=== PATIENT | female | born 1950 | race Caucasian/White ===

== ENCOUNTER 2024-08-21 16:25 | Inpatient (IN) | payer MEDICARE ==
[~2024-08-21] VITALS: Ht 172.7 cm; Wt 81.8 kg
[2024-08-21 17:40] VITALS: BP 157/87; PULSE 75; RESP 16; TEMP 98.1; O2SAT 96
[2024-08-21 17:41] VITALS: O2SAT 96
[2024-08-21] MEDS ORDERED: HYDROcodone/acetaminophen 10/325mg tab PO PRN (17:55)
[2024-08-21] MEDS ORDERED: potassium Cl 40MEQ/1/2NS 520ml 520 ML IV PRN (17:55)
[2024-08-21] MEDS ORDERED: acetaminophen 325mg tablet PO PRN (17:55)
[2024-08-21] MEDS ORDERED: magnesium sulf-water 4G/100mL 100 ML IV PRN (17:55)
[2024-08-21] MEDS ORDERED: potassium Cl 20 mEq SR tablet PO PRN ×2 (17:55)
[2024-08-21] MEDS ORDERED: magnesium hydroxide 30ml (MOM) UD suspension PO PRN (17:55)
[2024-08-21] MEDS ORDERED: hydrALAZINE 20mg/ml inj. IV PRN (17:55)
[2024-08-21] MEDS ORDERED: aspirin 81mg, enteric-coated 1 TAB TABLET.DR PO ONE (17:55)
[2024-08-21] MEDS ORDERED: HYDROcodone/acetaminophen 5mg/325mg tablet PO PRN (17:55)
[2024-08-21] MEDS ORDERED: mag hydrox/Alum hydrox/simeth 30ml oral suspension PO PRN (17:55)
[2024-08-21] MEDS ORDERED: ondansetron/PF 4mg/2ml inj IV PRN (17:55)
[2024-08-21] MEDS ORDERED: magnesium sulf-water 2g/50mL 50 ML IV PRN (17:55)
--- NOTE | 2024-08-21 17:59 | HISTORY AND PHYSICAL ---
History & Physical Providers to ~ History of Present Illness Reason for Admit\Complaint: Severe MR, acute hypoxic respiratory failure History of Present Illness Will Kim is a 73-year-old female with past medical history of chronic diastolic heart failure, NIDDM, hyperlipidemia, COPD, recent GIB who was transferred from [facility] for management of severe mitral regurgitation and needs for cardiac catheterization prior to valve replacement. Patient denies prior MO/CAD, CVA, cardiac arrhythmia, DVT/PE. Patient reports severe shortness of breath with ambulation or exertion but denies chest pain, palpitations, abdominal pain, n/v/d, fever, chills. Medical records from [place] reviewed by me, TTE shows LVEF 60-65% with left ventricular wall thickness, mildly dilated atrium, mild stenosis of aortic valve with mild regurgitation, severe mitral valve regurgitation, mild tricuspid regurgitation, normal right ventricle, small to moderate pericardial effusion without tamponade. At [facility], there was concerns for GIB and normocytic anemia. EGD was completed with findings notable for gastritis. Sinter Machine Operator Dr. Lawrence consulted. Patient is to be admitted for further workups and interventions. Allergies: Coded Allergies: [id number] Reductase Inhibitor (Verified Allergy, Unknown, 08/21/24) Past Medical History Past Medical History MR, severe Chronic diastolic heart failure Hyperlipidemia Hypertension NIDDM COPD Fatty liver disease Past Surgical History Surgical History Comment Cholecystectomy Appendectomy Past Social History Social History Comment Alcohol: hx chronic alcoholism, quit 37 years ago Tobacco: Former smoker, 30 pack year smoking history, quit 20 years ago Illicit drug use: Denies Living situation: Lives alone at home ROS ROS Other than positives in HPI, all 14 review of systems are negative Exam General: Generalized weakness, A&Ox 3, NAD HEENT: Normocephalic, PERRLA Neck: Supple, trachea midline, no JVD Chest: Clear to auscultation bilaterally Cardiovascular: RRR, Grade V holosystolic murmur over apex of the heart Abdomen: Soft and nontender Extremities: No cyanosis/clubbing/or edema Central Nervous System: CN II-XII intact, no focal deficits Musculoskeletal: No paraspinal muscle tenderness, no muscle spasm Skin: Warm and intact Counseling Services Smoking & Tobacco Cessation: > 10 Minutes Additional Plan # Mitral valve regurgitation, severe # Acute on chronic diastolic heart failure, LVEF 60-65% -TTE form [facility] shows: LVEF 60-65% with left ventricular wall thickness, m ildly dilated atrium, mild stenosis of aortic valve with mild regurgitation, severe mitral valve regurgitation, mild tricuspid regurgitation, normal right ventricle, small to moderate pericardial effusion without tamponade -metoprolol, supplemental oxygen; follow EKG, CBC, CMP -consulted language assistant Al Dang who will do cath tomorrow. # GIB # Normocytic anemia # Gastritis -PPI # HTN # NIDDM # COPD -aspirin, reports adverse reaction to statin on home Repatha, prn bronchodilators -LDL 48, A1c 5.6% Diet: NPO after midnight DVT/VTE Prophylaxis: SCDs, hold chemical anticoagulant in view of recent GIB Code Status: Full Code I spent a total of 30 minutes discussing Advanced Care Planning measures with the patient. Advance care planning: Discussed with patient the importance of advance care planning in case of emergent situation. We discussed various resuscitative measures/ ACP with the patient at the time of admission. Patient voiced understanding and patient has decided on a DNR/DNI. Date of Service: Aug 21, 2024 Billing Provider: SURENDRA TRIVEDI Common Visit Codes: [id number] INP/OBS CARE (HIGH) Secondary Visit Codes: [id number] CARE PLAN 30 MINUTES SURENDRA TRIVEDI Aug 21, 2024 17:59
[2024-08-21] MEDS ORDERED: ipratropium/albuterol 3ml nebule NEB PRN (18:20)
[2024-08-21 18:23] LABS: BASOPHILS % (AUTO) 0.8 % (0-1); EOSINOPHILS # (AUTO) 0.1 X10'3 (0-0.9); EOSINOPHILS % (AUTO) 2.4 % (0-6); HEMOGLOBIN 9.7 g/dl (12.0-16.0); LYMPHOCYTES # (AUTO) 1.2 X10'3 (1.1-4.8); LYMPHOCYTES % (AUTO) 20.6 % (21-51); MEAN CORPUSCULAR HEMOGLOBIN 30.5 PG (27.0-31.0); MEAN CORPUSCULAR HGB CONC 34.6 g/dL (33.0-36.5); MEAN CORPUSCULAR VOLUME 88.2 FL (78-98); MONOCYTES # (AUTO) 0.6 X10'3 (0-0.9); MONOCYTES % (AUTO) 9.2 % (2-12); PLATELET COUNT 201 X10'3 (140-440); RED BLOOD COUNT 3.17 X10'6 (4.20-5.60); RED CELL DISTRIBUTION WIDTH 14.9 % (11.5-14.5)
[2024-08-21] MEDS ORDERED: ALLO100T PO (18:23)
[2024-08-21 18:38] LABS: ALANINE AMINOTRANSFERASE 28 U/L (12-78); ALBUMIN 3.1 G/DL (3.4-5.0); ALBUMIN/GLOBULIN RATIO 1.1 (1.1-1.5); ALKALINE PHOSPHATASE 54 IU/L (46-116); ANION GAP 8 (8-16); ASPARTATE AMINO TRANSFERASE 17 U/L (10-37); BILIRUBIN,TOTAL 0.5 MG/DL (0.1-1.0); BLOOD UREA NITROGEN 20 MG/DL (7-18); CALCIUM 8.5 MG/DL (8.5-10.1); CHLORIDE 105 MMOL/L (99-107); GLUCOSE 110 MG/DL (70-104); POTASSIUM 4.1 MMOL/L (3.5-5.1); SODIUM 140 MMOL/L (135-145); TOTAL CARBON DIOXIDE 27.2 MMOL/L (24-32); eGFR 70 ML/MIN
[2024-08-21 18:41] LABS: HEMOGLOBIN A1C 5.6 % (4.5-6.2)
[2024-08-21 18:44] LABS: CHOL/HDL RATIO 2.3 (0.00-4.99); CHOLESTEROL 124 MG/DL (0-200); HDL CHOLESTEROL 55 MG/DL (35-60); LDL CHOLESTEROL 48 MG/DL (50-100); PRO BRAIN NATRIURETIC PEPTIDE 901 PG/ML (0-450); TRIGLYCERIDES 169 MG/DL (20-135)
[2024-08-21 18:58] LABS: PROTHROMBIN TIME 10.4 SECONDS (9.0-12.0)
[2024-08-21] MEDS: docusate sod 100mg capsule PO SCH (19:18)
[2024-08-21] MEDS: metoprolol succinate 25mg (24-HOUR) SR. Tablet PO ONE (19:21)
[2024-08-21] MEDS: pantoprazole 40 MG vial IV SCH (19:27)
[2024-08-21] MEDS: K and/or MAG REPLACEMENT MC SCH (19:43)
[2024-08-21] MEDS ORDERED: heparin, porcine 5000 units/ml vial SQ SCH (20:00)
[2024-08-21 20:02] VITALS: PULSE 81; RESP 18; O2SAT 98
[2024-08-21 22:00] VITALS: BP 146/87; PULSE 80; RESP 19; TEMP 97.8; O2SAT 97
[2024-08-22] VITALS (14 sets, daily range): BP systolic 107–196; BP diastolic 79–98; PULSE 72–96; RESP 12–22; TEMP 97.4–98.9; O2SAT 90–94
[2024-08-22 07:04] LABS: BASOPHILS % (AUTO) 0.7 % (0-1); EOSINOPHILS # (AUTO) 0.2 X10'3 (0-0.9); EOSINOPHILS % (AUTO) 3.7 % (0-6); HEMATOCRIT 29.8 % (35.0-45.0); HEMOGLOBIN 10.1 g/dl (12.0-16.0); LYMPHOCYTES # (AUTO) 1.4 X10'3 (1.1-4.8); LYMPHOCYTES % (AUTO) 20.8 % (21-51); MEAN CORPUSCULAR HEMOGLOBIN 30.2 PG (27.0-31.0); MEAN CORPUSCULAR HGB CONC 34.1 g/dL (33.0-36.5); MEAN CORPUSCULAR VOLUME 88.6 FL (78-98); MEAN PLATELET VOLUME 7.5 FL (7.4-10.4); MONOCYTES # (AUTO) 0.6 X10'3 (0-0.9); MONOCYTES % (AUTO) 8.5 % (2-12); NEUTROPHILS # (AUTO) 4.3 X10'3 (1.8-7.7); NEUTROPHILS % (AUTO) 66.3 % (42-75); PLATELET COUNT 183 X10'3 (140-440); RED BLOOD COUNT 3.36 X10'6 (4.20-5.60); RED CELL DISTRIBUTION WIDTH 15.1 % (11.5-14.5); WHITE BLOOD COUNT 6.5 X10'3 (4.5-11.0)
[2024-08-22 07:15] LABS: ALANINE AMINOTRANSFERASE 28 U/L (12-78); ALKALINE PHOSPHATASE 51 IU/L (46-116); ANION GAP 8 (8-16); ASPARTATE AMINO TRANSFERASE 21 U/L (10-37); BILIRUBIN,TOTAL 0.6 MG/DL (0.1-1.0); BLOOD UREA NITROGEN 18 MG/DL (7-18); BUN/CREATININE RATIO 22.2 (10.0-20.0); CALCIUM 8.9 MG/DL (8.5-10.1); CHLORIDE 107 MMOL/L (99-107); CREATININE 0.81 MG/DL (0.40-0.90); GLUCOSE 112 MG/DL (70-104); MAGNESIUM 1.8 MG/DL (1.5-2.4); SODIUM 143 MMOL/L (135-145); TOTAL CARBON DIOXIDE 28.1 MMOL/L (24-32); eGFR 69 ML/MIN
[2024-08-22] MEDS ORDERED: FLUT16SP (07:32)
[2024-08-22] MEDS ORDERED: NITR0.4T48 SL (07:32)
[2024-08-22] MEDS ORDERED: METO-411 PO (07:32)
[2024-08-22] MEDS ORDERED: EVOL140P3 SQ (07:32)
[2024-08-22] MEDS ORDERED: LOSA100T58 PO (07:32)
[2024-08-22] MEDS ORDERED: AMLO5TAB16 PO (07:32)
[2024-08-22] MEDS ORDERED: aspirin 81mg, enteric-coated 1 TAB TABLET.DR PO SCH (08:00)
[2024-08-22] MEDS: metoprolol succinate 25mg (24-HOUR) SR. Tablet PO SCH (08:05)
[2024-08-22] MEDS: amLODIPine 5mg tablet PO ONE (08:24)
[2024-08-22 09:55] LABS: BILIRUBIN,URINE NEGATIVE (Neg); CLARITY,URINE CLEAR (Clear); COLOR,URINE YELLOW (Yellow); GLUCOSE, URINE NEGATIVE (Neg); KETONES,URINE NEGATIVE (Neg); LEUKOCYTE ESTERASE ,URINE NEGATIVE (Neg); NITRITES, URINE NEGATIVE (Neg); OCCULT BLOOD,URINE NEGATIVE (Neg); PROTEIN,URINE NEGATIVE (Neg)
[2024-08-22 09:58] LABS: UA COLLECTION TYPE CLN CATCH MIDSTREAM
[2024-08-22] MEDS: sodium bicarbonate 1meq/ml syr 150 ML in dextrose 5%-water 1,000 ML IV ONE (13:32)
[2024-08-22] MEDS ORDERED: midazolam 1 mg/ML 2ml injection ONE ×2 (13:34→14:29)
[2024-08-22] MEDS ORDERED: fentaNYL/PF 50MCG/1 ML 2ML syringe ONE (13:34)
[2024-08-22] MEDS ORDERED: iohexol 350MG/ML 100ml bottle IV ONE (13:35)
[2024-08-22] MEDS ORDERED: heparin 1,000unit/ml 10ml vial 10 ML ONE (13:35)
[2024-08-22] MEDS ORDERED: iohexol 350 MG/ML 50ML vial IV ONE ×2 (13:35→13:39)
[2024-08-22] MEDS ORDERED: LIDOcaine 1% 30ml preserv. free vial ONE (13:44)
[2024-08-22] MEDS ORDERED: protamine sulfate 10mg/ml inj. ONE (14:56)
[2024-08-22] MEDS ORDERED: proCHLORperazine 10 MG/2 ml inj IV PRN (16:00)
[2024-08-22] MEDS ORDERED: HYDROcodone/acetaminophen 10/325mg tab PO PRN (16:00)
[2024-08-22] MEDS ORDERED: ondansetron/PF 4mg/2ml inj IV PRN (16:00)
[2024-08-22] MEDS ORDERED: HYDROcodone/acetaminophen 5mg/325mg tablet PO PRN (16:00)
--- NOTE | 2024-08-22 17:06 | PROGRESS NOTE ---
Daily Progress Note Providers to CC ~ Antibiotic Timeout Antibiotic Ordered?: No Subjective No acute events overnight. Patient examined at bedside. No new complaints, not in acute distress. Patient denies chest pain, sob, palpitations, abdominal pain, n/v/d. Vss, on room air, labs unremarkable. Objective Vital Signs Date Time Temp Pulse Resp B/P (MAP) Pulse Ox O2 Delivery O2 Flow Rate FiO2 08/22/24 11:18 86 20 93 Room Air* 0 21 08/22/24 11:00 97.7 157/83 (107) Result Diagram: 08/22/24 0611 08/22/24 0611 Physical Exam General: Generalized weakness, A&Ox 3, NAD HEENT: Normocephalic, PERRLA Neck: Supple, trachea midline, no JVD Chest: Clear to auscultation bilaterally Cardiovascular: RRR, Grade V holosystolic murmur over apex of the heart GI: Soft and nontender Extremities: No cyanosis/clubbing/or edema PURCHASING COORDINATOR: CN II-XII intact, no focal deficits Musculoskeletal: No paraspinal muscle tenderness, no muscle spasm Skin: Warm and intact Coagulation Studies Laboratory Tests Test 08/21/24 18:35 Prothrombin Time 10.4 SECONDS (9.0-12.0) INR International Normalized Ratio 1.0 INR Coagulation Comments Problem\Assessment\Plan # Mitral valve regurgitation, severe # Acute on chronic diastolic heart failure, LVEF 60-65% -TTE form [facility] shows: LVEF 60-65% with left ventricular wall thickness, mildly dilated atrium, mild stenosis of aortic valve with mild regurgitation, s evere mitral valve regurgitation, mild tricuspid regurgitation, normal right ventricle, small to moderate pericardial effusion without tamponade -metoprolol, supplemental oxygen; follow EKG, CBC, CMP -consulted stock unloader Al Dang who will do cath tomorrow -08/22: cath today # GIB # Normocytic anemia # Gastritis -PPI, h/h stable # HTN # NIDDM # COPD -aspirin, reports adverse reaction to statin on home Repatha, prn bronchodilators -LDL 48, A1c 5.6% Diet: NPO after midnight DVT/VTE Prophylaxis: SCDs, hold chemical anticoagulant in view of recent GIB Code Status: Full Code I spent a total of 30 minutes discussing Advanced Care Planning measures with the patient. Advance care planning: Discussed with patient the importance of advance care planning in case of emergent situation. We discussed various resuscitative measures/ ACP with the patient at the time of admission. Patient voiced understanding and patient has decided on a DNR/DNI. Date of Service: Aug 22, 2024 Billing Provider: SURENDRA TRIVEDI Common Visit Codes: [id number] INP/OBS CARE(HIGH) SURENDRA TRIVEDI Aug 22, 2024 17:06
--- NOTE | 2024-08-22 19:12 | CONSULTATION ---
DATE OF CONSULTATION: 08/22/2024 DICTATING PHYSICIAN: ZEENAT DAILEY DO REFERRING PHYSICIAN: Dr. Kwong. CHIEF COMPLAINT: Dyspnea. CLINICAL HISTORY: This 73-year-old woman was transferred to [facility] yesterday from [facility]. She has been admitted three times there in calendar year 2024 for problems with severe dyspnea, labile blood pressure, and congestive heart failure. Echocardiography has demonstrated very severe mitral regurgitation. There has been no history of ischemic heart disease. Her most recent admission was just prior to transfer wherein she presented with her usual symptoms, but on this occasion, she also had a history of black tarry stools and she was moderately anemic with a hemoglobin initially at 8 but falling to 7.1. Aspirin had been recently started but was discontinued during the hospitalization. She received 2 units of packed red cells and her status was thereafter reasonably stable. She has been transferred to [place] in expectation of a workup prior to mitral valve repair or replacement. Today cardiac catheterization was performed. That study demonstrated no obstructive coronary disease, severe, 4+ mitral regurgitation and hyperdynamic left ventricular function with the ejection fraction estimated to be about 75%. Her past medical history is remarkable for an unspecified problem with statin medicines. Her other medical problems have included hyperlipidemia, diabetes mellitus type 2, chronic obstructive lung disease, a prior history of alcoholism and a question of chronic diastolic heart failure. Previous surgeries have included an appendectomy and cholecystectomy. Medicines at the time of admission in [place] included amlodipine, losartan, metoprolol succinate, Repatha, allopurinol, baby aspirin (now discontinued), fish oil, coenzyme Q10, calcium carbonate, fluticasone nasal spray, magnesium supplement of 400 mg per day, nitroglycerin 0.4 mg SL p.r.n. chest pain. SOCIAL HISTORY: The patient is currently not a smoker but discontinued the habit in 1999. She denies any alcoholic beverage consumption since 1986. REVIEW OF SYSTEMS: Otherwise unremarkable. PHYSICAL EXAMINATION: VITAL SIGNS: Blood pressure in the cardiac catheterization laboratory demonstrated a heart rate of 82, blood pressure of 138/74. GENERAL: She was in no distress. The patient is markedly overweight. NECK: She had no jugular venous distention. No carotid bruits. CHEST: On examination of the chest, she had crackles at the right base and breath sounds were somewhat distant, clear on the left. CARDIOVASCULAR: Apical impulse not clearly displaced. Both heart sounds were soft and single. There is a grade 3/6 systolic murmur best heard at the apex. No gallops. ABDOMEN: Overweight, soft, nontender. EXTREMITIES: No edema. Foot pulses are difficult to palpate. EKG demonstrated sinus rhythm and nonspecific ST-T changes. Slot Machine Department Floorperson laboratory data since admission to this hospital, a.m. hemogram demonstrated a hemoglobin of 10.1, hematocrit of 29.8, WBC count 6500, platelet count 183,000. Sodium 143, potassium 4, CO2 content 28.1. Blood sugars varying between 107 and 152 today. Albumin 3.0. All liver function tests within the normal range. Creatinine 0.81, BUN 18. Other findings on echocardiography in [place] included an estimated aortic valve area of 1.8 cm2. The patient was also thought to have some degree of relative mitral stenosis, but no comment about the aortic or mitral valves actually looking like there has been damage from previous rheumatic carditis. ASSESSMENT/PLAN: This patient's principal problem is severe mitral regurgitation. It is presumed that she has a problem with ruptured chordae, but it is not defined yet as to where her valve dysfunction is located, i.e., where broken cords exist. Most probably, the posterior leaflet is primarily involved. Considering the fact that she has been hospitalized three times since 05/07/2024, the patient is a very strong candidate for referral to cardiac surgery. If it is requested that she have a transesophageal echocardiogram before surgery, it will be provided. ZEENAT DAILEY DO TID: [id number] RECEIPT: [id number] COREY/KARAN IRVING
--- NOTE | 2024-08-22 19:52 | CARDIOLOGY REPORT ---
DATE OF SERVICE: 08/22/2024 DICTATING PHYSICIAN: ZEENAT DAILEY DO CARDIAC CATHETERIZATION REPORT REFERRING PHYSICIAN: Asif Eugene MD. CLINICAL HISTORY: This 73-year-old woman has been admitted on 3 separate occasions in calendar 2024 for congestive heart failure. Most recently, she was hospitalized at [place] earlier this month with dyspnea, hypotension and anemia/gastrointestinal bleeding. Her bleeding issue is now resolved and she is also hemodynamically stable. Echocardiography has demonstrated severe mitral regurgitation. PROCEDURES PERFORMED: * Right heart catheterization. * Left heart catheterization. * Left ventriculography. * Selective coronary arteriography. * Percutaneous arteriotomy closure (Perclose). * A 45-minute conscious sedation supervision. DESCRIPTION OF PROCEDURE: Right heart catheterization. The right inguinal area was infiltrated with 1% lidocaine and 8-Rwandan sheath was placed in the femoral vein. Using a 7.5-Rwandan Columbus-Lauro catheter, right heart catheterization was performed. Cardiac output was determined using a thermodilution technique. Left heart catheterization was performed using a 6-Rwandan pigtail catheter. Left ventriculography was performed using the same pigtail catheter. Coronary arteriography was performed using 6-Rwandan #4 left and right Avelino catheters. The arterial puncture site was successfully perclosed. The venous access site hemostasis was obtained with direct pressure. RESULTS: HEMODYNAMIC DATA: The mean right atrial pressure was 13 mmHg. Right ventricular pressure was 49/12 mmHg. Mean pulmonary capillary wedge pressure was 29 mmHg. Left ventricular end diastolic pressure was 31 mmHg. The cardiac output by thermodilution technique was 4.75 L/min. There was only a 10 mm gradient across the aortic valve. LEFT VENTRICULOGRAM: The left ventriculogram was technically satisfactory. Ejection fraction was estimated to be about 75%. There was 4+ mitral regurgitation. CORONARY ARTERIOGRAPHY: The coronary arteriograms are technically satisfactory. The patient had a right dominant system. LEFT MAIN CORONARY ARTERY: The left main was a large, very short vessel immediately trifurcating into left anterior descending, intermediate, and circumflex coronary arteries. LEFT ANTERIOR DESCENDING CORONARY ARTERY: The LAD was a medium to large main stem vessel. There was one medium-sized diagonal branch taking its origin from the mid LAD. There were no high-grade stenoses in this vessel, but distally, there was about a 40-50% area of narrowing near the apex. INTERMEDIATE ARTERY: The intermediate was a small to medium-sized unobstructed vessel. CIRCUMFLEX CORONARY ARTERY: The main stem circumflex was a large vessel. There was a small caliber first obtuse marginal and 2 medium to large posterolateral branches. Just before the takeoff of the small caliber first obtuse marginal, there was about a 50% narrowing and just beyond the takeoff, the narrowing was estimated to be about 50-60%. RIGHT CORONARY ARTERY: The right coronary artery was a large main stem vessel. There was a medium-sized posterior descending branch and a small to medium-sized posterolateral branch. There were no obstructive lesions in the right coronary artery. There was about a 50-60% narrowing in the distal right coronary between the posterior descending and first posterolateral branch. CONCLUSIONS: * Severe mitral regurgitation estimated to be 4+ on the ventriculogram. By this, it is meant that after 3 successive beats, there was greater contrast enhancement of the left atrium than the left ventricle. * Coronary artery disease manifested as follows: * 40-50% mid LAD bracketing a principal diagonal branch. * 50% proximal and 50-60% distal (just after a small proximal obtuse marginal branch). * 50-60% stenosis between the RCA PDA and first posterolateral branch. * Left ventricular function is hyperdynamic. The estimated LVEF was 75%. ZEENAT DAILEY DO TID: [id number] RECEIPT: [id number] COREY/MARCIAL/MURALI cc: Asif Eugene MD [facility]
[2024-08-22] MEDS: acetaminophen 325mg tablet PO PRN (21:13)
[2024-08-23] VITALS (11 sets, daily range): BP systolic 127–150; BP diastolic 68–77; PULSE 69–93; RESP 15–22; TEMP 97.3–99.6; O2SAT 79–95
[2024-08-23 06:10] LABS: BASOPHILS % (AUTO) 0.5 % (0-1); EOSINOPHILS # (AUTO) 0.2 X10'3 (0-0.9); EOSINOPHILS % (AUTO) 2.2 % (0-6); HEMATOCRIT 28.4 % (35.0-45.0); HEMOGLOBIN 9.7 g/dl (12.0-16.0); LYMPHOCYTES # (AUTO) 0.9 X10'3 (1.1-4.8); LYMPHOCYTES % (AUTO) 12.5 % (21-51); MEAN CORPUSCULAR HEMOGLOBIN 29.9 PG (27.0-31.0); MEAN CORPUSCULAR HGB CONC 34.2 g/dL (33.0-36.5); MEAN CORPUSCULAR VOLUME 87.4 FL (78-98); MEAN PLATELET VOLUME 7.3 FL (7.4-10.4); MONOCYTES # (AUTO) 0.6 X10'3 (0-0.9); MONOCYTES % (AUTO) 8.3 % (2-12); NEUTROPHILS # (AUTO) 5.4 X10'3 (1.8-7.7); NEUTROPHILS % (AUTO) 76.5 % (42-75); PLATELET COUNT 183 X10'3 (140-440); RED BLOOD COUNT 3.25 X10'6 (4.20-5.60); RED CELL DISTRIBUTION WIDTH 14.9 % (11.5-14.5); WHITE BLOOD COUNT 7.1 X10'3 (4.5-11.0)
[2024-08-23 06:14] LABS: ALANINE AMINOTRANSFERASE 29 U/L (12-78); ALKALINE PHOSPHATASE 54 IU/L (46-116); ANION GAP 7 (8-16); ASPARTATE AMINO TRANSFERASE 22 U/L (10-37); BLOOD UREA NITROGEN 14 MG/DL (7-18); BUN/CREATININE RATIO 19.4 (10.0-20.0); CALCIUM 8.6 MG/DL (8.5-10.1); CHLORIDE 105 MMOL/L (99-107); CREATININE 0.72 MG/DL (0.40-0.90); GLUCOSE 105 MG/DL (70-104); MAGNESIUM 1.7 MG/DL (1.5-2.4); POTASSIUM 3.8 MMOL/L (3.5-5.1); SODIUM 142 MMOL/L (135-145); TOTAL CARBON DIOXIDE 29.6 MMOL/L (24-32); eCRCL 61 ML/MIN; eGFR 79 ML/MIN
[2024-08-23 06:44] LABS: BILIRUBIN,TOTAL 0.7 MG/DL (0.1-1.0); TOTAL PROTEIN 5.9 G/DL (6.4-8.2)
[2024-08-23] MEDS: amLODIPine 5mg tablet PO SCH (08:06)
[2024-08-23] MEDS: metoprolol succinate 25mg (24-HOUR) SR. Tablet PO SCH (08:07)
--- NOTE | 2024-08-23 09:59 | ELECTROCARDIOGRAPH REPORT ---
[facility] Test Date: 2024-08-23 Test Time: 09:49:56 Pat Name: ROSANGELA ATKINS Department: [facility] 3S Room: [facility] 2013 Gender: F Director Of Software Development: KIMFLORIN : 1950 Requested By: SURENDRA TRIVEDI Order Number: [id number] Reading MD: Dr. SCOTT Coffey Measurements Intervals [place] Rate: 82 P: 77 MD: 140 QRS: 41 QRSD: 100 T: 163 QT: 369 QTc: 431 Interpretive Statements Sinus rhythm Repol abnrm suggests ischemia, anterolateral Electronically Signed On 08-26-2024 18:32:[address] SCOTT Coffey Please click the below link to view image of tracing.
--- NOTE | 2024-08-23 10:19 | PROGRESS NOTE ---
Daily Progress Note Providers to CC ~ Antibiotic Timeout Antibiotic Ordered?: No Subjective No acute events overnight. Patient examined at bedside. No new complaints, not in acute distress. Patient denies chest pain, sob, palpitations, abdominal pain, n/v/d. Vss, on room air, labs unremarkable. Severe MV regurgitation, patient underwent cardiac cath yesterday. Pending MV replacement. Objective Vital Signs Date Time Temp Pulse Resp B/P (MAP) Pulse Ox O2 Delivery O2 Flow Rate FiO2 08/23/24 08:06 92 08/23/24 08:00 18 95 Room Air 08/23/24 07:09 97.8 142/68 (92) 3.0 08/22/24 18:57 21 Result Diagram: 08/23/24 0517 08/23/24 0517 Physical Exam General: Generalized weakness, A&Ox 3, NAD HEENT: Normocephalic, PERRLA Neck: Supple, trachea midline, no JVD Chest: Clear to auscultation bilaterally Cardiovascular: RRR, Grade V holosystolic murmur over apex of the heart GI: Soft and nontender Extremities: No cyanosis/clubbing/or edema COUNTER CASER: CN II-XII intact, no focal deficits Musculoskeletal: No paraspinal muscle tenderness, no muscle spasm Skin: Warm and intact Coagulation Studies Laboratory Tests Test 08/21/24 18:35 Prothrombin Time 10.4 SECONDS (9.0-12.0) INR International Normalized Ratio 1.0 INR Coagulation Comments Problem\Assessment\Plan # Mitral valve regurgitation, severe # Acute on chronic diastolic heart failure, LVEF 60-65% -TTE form [facility] shows: LVEF 60-65% with left ventricular wall thickness, mildly dilated atrium, mild stenosis of aortic valve with mild regurgitation, s evere mitral valve regurgitation, mild tricuspid regurgitation, normal right ventricle, small to moderate pericardial effusion without tamponade -metoprolol, supplemental oxygen; follow EKG, CBC, CMP -consulted vtc technician Al Dang who will do cath tomorrow -08/22: cath today # GIB # Normocytic anemia # Gastritis -PPI, h/h stable # HTN # NIDDM # COPD -aspirin, reports adverse reaction to statin on home Repatha, prn bronchodilators -LDL 48, A1c 5.6% Diet: NPO after midnight DVT/VTE Prophylaxis: SCDs, hold chemical anticoagulant in view of recent GIB Code Status: Full Code I spent a total of 30 minutes discussing Advanced Care Planning measures with the patient. Advance care planning: Discussed with patient the importance of advance care planning in case of emergent situation. We discussed various resuscitative measures/ ACP with the patient at the time of admission. Patient voiced understanding and patient has decided on a DNR/DNI. Date of Service: Aug 23, 2024 Billing Provider: SURENDRA TRIVEDI Common Visit Codes: [id number] INP/OBS CARE(HIGH) SURENDRA TRIVEDI Aug 23, 2024 10:19
[2024-08-23] MEDS ORDERED: potassium Cl 40MEQ/1/2NS 520ml 520 ML IV PRN (11:50)
[2024-08-23] MEDS ORDERED: ceFAZolin 2gm in dextrose, iso 50 ML IV ONE (11:50)
[2024-08-23] MEDS ORDERED: magnesium sulf-water 2g/50mL 50 ML IV PRN (11:50)
[2024-08-23] MEDS ORDERED: potassium CL 10mEq/100ml bag 100 ML IV PRN (11:50)
[2024-08-23] MEDS ORDERED: magnesium sulf-water 4G/100mL 100 ML IV PRN (11:50)
[2024-08-23] MEDS ORDERED: potassium Cl 40MEQ/270ML bag 250 ML IV PRN (11:50)
[2024-08-23] MEDS ORDERED: potassium Cl 20 mEq SR tablet PO PRN (11:50)
[2024-08-23] MEDS ORDERED: potassium Cl 20mEq/100mL bag 100 ML IV PRN (11:50)
[2024-08-23] MEDS ORDERED: vancomycin/NS 1 GM ADD-VANTAGE 250 ML IV ONE (11:50)
--- NOTE | 2024-08-23 12:02 | CONSULTATION REPORT ---
History of Present Illness Providers to CC ~ Reason for Admit\Admit Dx: Severe MR, acute hypoxic respiratory failure Refering MD: Dr Al Salgado History of Present Illness Was marked is a very nice 73-year-old woman who has a known history of mitral insufficiency. She has had three admissions to the hospital for congestive heart failure in the past four months. Most recently she she was seen at the emergency department in [facility]. At that time she was found to have congestive heart failure with increasing shortness of breath. She also had a recent history of melanotic stools. She was found to have a hemoglobin of 7.1 and was transfused with 2 units of blood. She underwent EGD which by report showed nothing specific. He was transferred here for left heart catheterization. This was done yesterday by Dr. Harris salgado it showed moderate areas of stenosis which were not hemodynamically significant. It did however confirmed normal left ventricular function with severe mitral insufficiency. Interestingly it also shows fairly significant mitral annular calcification. We have been consulted for possible mitral valve repair or replacement. The patient has had two shortness of breath as well as exertional dyspnea. She has had occasional orthopnea but no PND. She denies anginal or pleuritic chest pain. She notes no peripheral edema. Allergies: Coded Allergies: Ydtjxtu-XAZ-CnU Reductase Inhibitor (Verified Allergy, Unknown, 08/21/24) Home Medications Home Medications Active Reported Fluticasone Propionate 50 Mcg/Actuation [place].susp Losartan Potassium 100 Mg Tablet 1 Tab PO DAILY Nitroglycerin 0.4 Mg Tab.subl Repatha Sureclick (Evolocumab) 140 Mg/Ml Pen.injctr SQ Amlodipine Besylate 5 Mg Tablet 1 Tab PO DAILY Metoprolol Succinate 100 Mg Tab.sr.24h 1 Tab PO DAILY Zyloprim* (Allopurinol) 100 Mg Tablet 1 Tab PO DAILY Allopurinol* (Allopurinol) 100 Mg Tablet 1 Tab PO DAILY 30 Days Physical Exam Last Vital Signs Recorded: RN Vital Signs have been reviewed: Yes, Temperature: 97.8, Source: Oral, Heart Rate: 75, Respiratory Rate: 16, BP: 142/68, Pulse Oximetry: 94, Weight: 82.800 General Appearance: alert, no apparent distress EENT: moist mucous membranes Neck: normal inspection, non-tender Respiratory: lungs clear, normal breath sounds Chest: no accessory muscle use Cardiovascular: regular rate, rhythm, systolic murmur (Grade 3/6 heard along the right sternal border) Peripheral Pulses: 2+ carotid (R), 2+ carotid (L), 2+ radial (R), 2+ radial (L), 2+ dorsalis pedis (R), 2+ dorsalis pedis (L) Gastrointestinal: normal palpation, non-tender, bowels sounds present Rectal: deferred Extremities: non-tender, no edema Neurologic: oriented x4 Psychiatric: normal mood/affect Skin: warm/dry Review of Systems ROS ROS Comments: Generally she denies anorexia or malaise, jaundice, pruritus, fever, chills or weight loss. GI she was noted has had a recent history of melena stools. EGD showed no obvious etiology. No further episodes. Hemoglobin stable. She denies nausea or vomiting, diarrhea, constipation. she denies dysuria, pyuria, hematuria, polyuria, urgency, hesitancy or frequency. Neuromuscular she denies frequent or severe headaches. She has had no change in her visual bradley. She denies difficulty with speech, swallowing, ambulation or coordination. Cardiopulmonary is as noted in HPI. Results Diagram Lab Result Diagram: 08/23/24 0517 08/23/24 0517 Assessment/Plan Additional Plan Mrs. Kim is a very nice 73-year-old woman who has severe mitral insufficiency. She has some non hemodynamically significant coronary stenoses in the 50% range which will not be addressed. Given the degree of mitral annular calcification on catheterization it is unlikely that repair we will be p ossible without extensive decalcification. Given her age it might be the better part of Valor to proceed with straight forward mitral valve replacement with preservation of chordee. The indications alternatives to surgery as well as the risks, benefits and possible complications associated with mitral valve repair or replacement in the setting have been discussed at some length with Mrs. Kmi. She states that she understands and accepts these and requested that we proceed. All of her questions have been answered to her stated satisfaction. After discussion she has agreed to full code status for 30 days postoperatively. At this time we plan surgery for Sunday. AYALA BLEDSOE III, MD Aug 23, 2024 12:02
[2024-08-23 12:43] LABS: APTT 23 SECONDS (22-32); PROTHROMBIN TIME 10.7 SECONDS (9.0-12.0)
--- NOTE | 2024-08-23 14:57 | RADIOLOGY REPORT ---
CLINICAL INFORMATION: 73 years old, Female; PRE CARDIAC SURGERY. TECHNIQUE: Frontal and lateral chest radiographs were obtained. COMPARISON: None FINDINGS: Lungs: Small left pleural effusion with overlying atelectasis. No focal consolidation visualized. Cardiac: Heart size is within normal limits. Pulmonary vasculature: Unremarkable Mediastinum/ailyn: Dense atherosclerotic calcification of the aortic arch. Bones: No evidence of acute osseous abnormality. Other: No other significant finding. IMPRESSION: 1. Small left pleural effusion with overlying atelectasis. 2. No focal consolidation visualized.
[2024-08-23] MEDS: albuterol 2.5 MG/3 ML nebule NEB PRN (16:59)
[2024-08-24] VITALS (8 sets, daily range): BP systolic 120–164; BP diastolic 64–80; PULSE 80–91; RESP 16–18; TEMP 97.5–99; O2SAT 90–95
[2024-08-24 05:51] LABS: BASOPHILS % (AUTO) 0.3 % (0-1); EOSINOPHILS # (AUTO) 0.1 X10'3 (0-0.9); EOSINOPHILS % (AUTO) 1.4 % (0-6); HEMATOCRIT 28.2 % (35.0-45.0); HEMOGLOBIN 9.4 g/dl (12.0-16.0); LYMPHOCYTES # (AUTO) 1.1 X10'3 (1.1-4.8); LYMPHOCYTES % (AUTO) 16.7 % (21-51); MEAN CORPUSCULAR HEMOGLOBIN 29.6 PG (27.0-31.0); MEAN CORPUSCULAR HGB CONC 33.2 g/dL (33.0-36.5); MEAN CORPUSCULAR VOLUME 89.2 FL (78-98); MEAN PLATELET VOLUME 7.2 FL (7.4-10.4); MONOCYTES # (AUTO) 0.7 X10'3 (0-0.9); MONOCYTES % (AUTO) 10.4 % (2-12); NEUTROPHILS # (AUTO) 4.7 X10'3 (1.8-7.7); NEUTROPHILS % (AUTO) 71.2 % (42-75); PLATELET COUNT 185 X10'3 (140-440); RED BLOOD COUNT 3.16 X10'6 (4.20-5.60); RED CELL DISTRIBUTION WIDTH 14.9 % (11.5-14.5); WHITE BLOOD COUNT 6.7 X10'3 (4.5-11.0)
[2024-08-24 06:25] LABS: ALANINE AMINOTRANSFERASE 19 U/L (12-78); ALBUMIN 3.1 G/DL (3.4-5.0); ALKALINE PHOSPHATASE 57 IU/L (46-116); ANION GAP 10 (8-16); ASPARTATE AMINO TRANSFERASE 23 U/L (10-37); BILIRUBIN,TOTAL 0.7 MG/DL (0.1-1.0); BLOOD UREA NITROGEN 15 MG/DL (7-18); BUN/CREATININE RATIO 20.3 (10.0-20.0); CALCIUM 9.1 MG/DL (8.5-10.1); CHLORIDE 107 MMOL/L (99-107); CREATININE 0.74 MG/DL (0.40-0.90); GLUCOSE 122 MG/DL (70-104); MAGNESIUM 1.9 MG/DL (1.5-2.4); POTASSIUM 4.7 MMOL/L (3.5-5.1); SODIUM 142 MMOL/L (135-145); TOTAL PROTEIN 6.2 G/DL (6.4-8.2); eCRCL 59 ML/MIN; eGFR 77 ML/MIN
[2024-08-24] MEDS ORDERED: hydrALAZINE 20mg/ml inj. IV PRN (07:05)
--- NOTE | 2024-08-24 09:11 | VASCULAR REPORT ---
PROCEDURE: [facility] CAROTID 08/24/2024 07:13 AM INDICATION: Preoperative evaluation. COMPARISON: None TECHNIQUE: Real-time grayscale and color Doppler images of the neck arteries were obtained with spect ral analysis performed. FINDINGS: RIGHT: Moderate calcified atherosclerotic plaque identified in the carotid bulb and proximal ICA. Nor mal spectral waveforms are seen. ICA peak systolic velocity: 324 cm/s ICA end-diastolic velocity: 81 cm/s ICA/CCA ratios: 3.24 LEFT: Moderate mixed plaque formation seen at the carotid bulb and proximal ICA. Normal spectral wave forms are seen. ICA peak systolic velocity: 239 cm/s ICA end-diastolic velocity: 65 cm/s ICA/CCA ratios: 2.25 VERTEBRAL ARTERIES: Abnormal retrograde flow noted in the left vertebral artery. Normal antegrade rogelio w in the right vertebral artery. SUBCLAVIAN ARTERIES: Multi phasic waveform noted in the right subclavian artery with peak systolic ve locity of 230 cm/sec. The left subclavian artery shows abnormal monophasic waveform with peak systoli c velocity of 74 cm/sec. IMPRESSION: 1. Moderate plaque formation of the bilateral carotid bulb and proximal internal carotid arteries wit h evidence of> 70% stenosis. 2. Abnormal retrograde flow in the left vertebral artery suggesting subclavian steal syndrome. Reference: Radiology 2003; 229:340-346 Normal ICA PSV is <125 cm/sec and no plaque or intimal thickening is visible sonographically addition al criteria include ICA/CCA PSV ratio <2.0 and ICA EDV <40 cm/sec <50% ICA stenosis ICA PSV is <125 cm/sec and plaque or intimal thickening is visible sonographically additional criteria include ICA/CCA PSV ratio <2.0 and ICA EDV <40 cm/sec 50-69% ICA stenosis ICA PSV is 125-230 cm/sec and plaque is visible sonographically additional criter ia include ICA/CCA PSV ratio of 2.0-4.0 and ICA EDV of 40-100 cm/sec 70% ICA stenosis but less than near occlusion ICA PSV is >230 cm/sec and visible plaque and luminal narrowing are seen at andersen-scale and color Doppler ultrasound (the higher the Doppler parameters lie above the threshold of 230 cm/sec, the greater the likelihood of severe disease) additional criteria include ICA/CCA PSV ratio >4 and ICA EDV >100 cm/sec
--- NOTE | 2024-08-24 09:17 | PROGRESS NOTE ---
Daily Progress Note Providers to CC ~ Antibiotic Timeout Antibiotic Ordered?: No Subjective No acute events overnight. Patient examined at bedside. No new complaints, not in acute distress. Patient denies chest pain, sob, palpitations, abdominal pain, n/v/d. Vss, labs unremarkable. Severe MV regurgitation. Mitral valve replacement tomorrow by Dr. Soto. 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: CN II-XII intact, no focal deficits Musculoskeletal: No paraspinal muscle tenderness, no muscle spasm Skin: Warm and intact Coagulation Studies Laboratory Tests Test 08/23/24 12:25 Prothrombin Time 10.7 SECONDS (9.0-12.0) INR International Normalized Ratio 1.0 INR Activated Partial Thromboplast Time 23 SECONDS (22-32) Coagulation Comments Problem\Assessment\Plan # Mitral valve regurgitation, severe # Acute on chronic diastolic heart failure, LVEF 60-65% -TTE form [facility] shows: LVEF 60-65% with left ventricular wall thickness, mildly dilated atrium, mild stenosis of aortic valve with mild regurgitation, s evere mitral valve regurgitation, mild tricuspid regurgitation, normal right ventricle, small to moderate pericardial effusion without tamponade -metoprolol, supplemental oxygen; follow EKG, CBC, CMP -consulted manufacturing production manager Al Dang who will do cath tomorrow -08/22: cath today -08/24: MV replacement scheduled tomorrow (Dr. Soto) # GIB # Normocytic anemia # Gastritis -PPI, h/h stable # HTN # NIDDM # COPD -aspirin, reports adverse reaction to statin on home Repatha, prn bronchodilators; metoprolol succ, hydralazine, isosorbide di -LDL 48, A1c 5.6% Diet: NPO after midnight DVT/VTE Prophylaxis: SCDs, hold chemical anticoagulant in view of recent GIB Code Status: Full Code I spent a total of 30 minutes discussing Advanced Care Planning measures with the patient. Advance care planning: Discussed with patient the importance of advance care planning in case of emergent situation. We discussed various resuscitative measures/ ACP with the patient at the time of admission. Patient voiced understanding and patient has decided on a DNR/DNI. Date of Service: Aug 24, 2024 Billing Provider: SURENDRA TRIVEDI Common Visit Codes: [id number] INP/OBS CARE(HIGH) SURENDRA TRIVEDI Aug 24, 2024 09:17
[2024-08-24] MEDS ORDERED: iohexol 350MG/ML 100ml bottle IV ONE ×2 (11:09→17:21)
--- NOTE | 2024-08-24 11:19 | PROGRESS NOTE ---
Progress Note CV Providers to CC ~ Central Line/PICC still needed: N\A Lucille Indications Met/Not Met: F/C Indications Not Met Antibiotics Ordered?: Yes If Yes, Indications?: Perioperative prophylaxis MRSA Education MRSA Education Provided: No Subjective Subjective Patient has no complaints today. No chest pain or shortness of breath. Objective Vitals Vital Signs Date Time Temp Pulse Resp B/P (MAP) Pulse Ox O2 Delivery O2 Flow Rate FiO2 08/24/24 09:55 90 08/24/24 08:07 18 90 Room Air* 0 21 08/24/24 07:00 99.0 164/80 (108) Lab Results: 08/24/24 0515 08/24/24 0515 Objective Cardiac exam with a regular rate and rhythm. A stable murmur the mid right sternal border. S2 is crisp. No rubs. Lungs were fairly clear with good aeration throughout. Carotids were 2+ with bilateral soft bruits. Coagulation Studies Laboratory Tests Test 08/23/24 12:25 Prothrombin Time 10.7 SECONDS (9.0-12.0) INR International Normalized Ratio 1.0 INR Activated Partial Thromboplast Time 23 SECONDS (22-32) Coagulation Comments Cardiac Rhythm: Sinus Rhythm Problem\Assessment\Plan Additional Plan Mrs. Kim is doing well with regards to her mitral insufficiency. Unfortunately carotid Dopplers reveal bilaterally significant carotid stenosis. We will obtain CTA today for a better idea of the exact degree. If she has greater than 85-90% stenosis bilaterally she will need to have concomitant CEA at the time of mitral valve replacement. If this is the case we may need to wait until Sunday or Sunday for surgical intervention to allow clearance of the dye as well as to discuss the situation in more detail. At the present time she remains on the schedule for tomorrow afternoon. AYALA BLEDSOE III, MD Aug 24, 2024 11:19
--- NOTE | 2024-08-24 20:48 | RADIOLOGY REPORT ---
INDICATION: Bilateral carotid stenosis by US COMPARISON: None TECHNIQUE:CTA neck with intravenous contrast. 3D/MIP image postprocessing was performed and images we re used for interpretation and reporting. Radiation Dose Information: CT Dose: CTDI volume is 16.25 mGy. Dose-length product is 517.07 mGy*cm Omnipaque 350: 100 mL FINDINGS: The visualized thoracic aortic arch and proximal great vessels are unremarkable. The left common, int ernal and external carotid arteries are within normal limits. The right common, internal and external carotid arteries are within normal limits. The cervical segments of the right and left vertebral art eries are within normal limits. The limited visualized lung apices are clear. The surrounding soft ti ssues and osseous structures are otherwise unremarkable. IMPRESSION: 1. No evidence of hemodynamically significant cervical stenosis or dissection. 2. Carotid stenosis bilaterally greater than 70%. Right appears worse than left. CAROTID STENOSIS REFERENCE Distal internal carotid artery diameter as the denominator for stenosis measurement: MILD = <50% stenosis. MODERATE = 50-69% stenosis. SEVERE = 70-89% stenosis. CRITICAL = 90-99% stenosis. OCCLUDED = 100% stenosis. 3. All CT scans at this medical facility are performed using dose modulation techniques as appropriate to a performed exam including the following: Automated exposure control was utilized; adjustment of t he MA and/or KV according to patient size; and use of iterative reconstruction technique.
[2024-08-25] VITALS (14 sets, daily range): BP systolic 92–156; BP diastolic 50–78; PULSE 73–80; RESP 12–22; TEMP 97.2–98.6; O2SAT 88–98
[2024-08-25 04:23] LABS: ABG HCO3 24.6 mmol/L (21.0-28.0); ABG OXYGEN SATURATION 92.7 % (94.0-98.0); ABG PCO2 (T) 33.6 mmHg (32.0-45.0); ABG PH (T) 7.481 (7.350-7.450); ABG PO2 (T) 61.9 mmHg (83.0-108.0); ALLEN'S TEST Modified; FCOHb 1.2 % (0.5-1.5); FHHb 7.2 % (0.0-5.0); FMetHb 0.3 % (0.0-1.5); FO2Hb 91.3 % (94.0-98.0); MODE VENT - CPAP; PATIENT TEMPERATURE 36.3
[2024-08-25] MEDS ORDERED: potassium Cl 20 mEq SR tablet PO PRN (05:30)
[2024-08-25] MEDS ORDERED: potassium Cl 40MEQ/270ML bag 250 ML IV PRN ×2 (05:30→18:45)
[2024-08-25] MEDS: ceFAZolin 2gm in dextrose, iso 50 ML IV ONE (05:30)
[2024-08-25] MEDS ORDERED: magnesium sulf-water 2g/50mL 50 ML IV PRN (05:30)
[2024-08-25] MEDS ORDERED: potassium Cl 20mEq/100mL bag 100 ML IV PRN (05:30)
[2024-08-25] MEDS ORDERED: potassium Cl 40MEQ/1/2NS 520ml 520 ML IV PRN ×2 (05:30→18:45)
[2024-08-25] MEDS ORDERED: magnesium sulf-water 4G/100mL 100 ML IV PRN (05:30)
[2024-08-25] MEDS: mupirocin 2% nasal ointment 1gm UD NS SCH ×2 (05:38→20:09)
--- NOTE | 2024-08-25 06:13 | ELECTROCARDIOGRAPH REPORT ---
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 SCOTT Coffey Measurements Intervals Pierz Rate: 87 P: 50 WA: 135 QRS: 49 QRSD: 102 T: 150 QT: 365 QTc: 439 Interpretive Statements Sinus rhythm Abnormal inferior Q waves Repol abnrm suggests ischemia, diffuse leads Electronically Signed On 08-26-2024 18:32:[address] SCOTT Coffey Please click the below link to view image of tracing.
[2024-08-25 06:48] LABS: BASOPHILS % (AUTO) 0.6 % (0-1); EOSINOPHILS # (AUTO) 0.2 X10'3 (0-0.9); EOSINOPHILS % (AUTO) 2.6 % (0-6); HEMATOCRIT 27.2 % (35.0-45.0); LYMPHOCYTES # (AUTO) 1.2 X10'3 (1.1-4.8); LYMPHOCYTES % (AUTO) 19.9 % (21-51); MEAN CORPUSCULAR HEMOGLOBIN 29.4 PG (27.0-31.0); MEAN CORPUSCULAR HGB CONC 33.1 g/dL (33.0-36.5); MEAN CORPUSCULAR VOLUME 88.8 FL (78-98); MEAN PLATELET VOLUME 7.1 FL (7.4-10.4); MONOCYTES # (AUTO) 0.6 X10'3 (0-0.9); MONOCYTES % (AUTO) 10.1 % (2-12); NEUTROPHILS % (AUTO) 66.8 % (42-75); PLATELET COUNT 197 X10'3 (140-440); RED BLOOD COUNT 3.07 X10'6 (4.20-5.60)
[2024-08-25 07:19] LABS: ALANINE AMINOTRANSFERASE 21 U/L (12-78); ALBUMIN/GLOBULIN RATIO 0.9 (1.1-1.5); ALKALINE PHOSPHATASE 53 IU/L (46-116); ANION GAP 8 (8-16); ASPARTATE AMINO TRANSFERASE 19 U/L (10-37); BILIRUBIN,TOTAL 0.6 MG/DL (0.1-1.0); BLOOD UREA NITROGEN 16 MG/DL (7-18); BUN/CREATININE RATIO 21.6 (10.0-20.0); CALCIUM 8.9 MG/DL (8.5-10.1); CHLORIDE 107 MMOL/L (99-107); CREATININE 0.74 MG/DL (0.40-0.90); GLUCOSE 117 MG/DL (70-104); MAGNESIUM 1.9 MG/DL (1.5-2.4); SODIUM 141 MMOL/L (135-145); TOTAL CARBON DIOXIDE 25.8 MMOL/L (24-32); TOTAL PROTEIN 6.3 G/DL (6.4-8.2); eCRCL 66 ML/MIN; eGFR 77 ML/MIN
--- NOTE | 2024-08-25 08:10 | PROGRESS NOTE ---
Progress Note CV Providers to CC ~ Antibiotics Ordered?: No Subjective Subjective No overnight complaints. CTA has been done. Dr. Soto will review images this AM. Presently planning MVR this afternoon. Anemia. Hgb 9.0 She does report dark stools as of yesterday. Objective Vitals Vital Signs Date Time Temp Pulse Resp B/P (MAP) Pulse Ox O2 Delivery O2 Flow Rate FiO2 08/25/24 07:00 97.6 73 22 125/70 (88) 93 Room Air 08/24/24 19:50 0 21 Lab Results: 08/25/24 0609 08/25/24 0609 Coagulation Studies Laboratory Tests Test 08/23/24 12:25 Prothrombin Time 10.7 SECONDS (9.0-12.0) INR International Normalized Ratio 1.0 INR Activated Partial Thromboplast Time 23 SECONDS (22-32) Coagulation Comments Cardiac Rhythm: Sinus Rhythm Supervising Co-signing Provider: ALLYSON Luong Aug 25, 2024 08:10
--- NOTE | 2024-08-25 10:54 | PROGRESS NOTE ---
Daily Progress Note Providers to CC ~ Antibiotic Timeout Antibiotic Ordered?: Yes If Yes, Indications: pre-op prophylaxis Subjective No acute events overnight. Patient examined at bedside. No new complaints, not in acute distress. Patient denies chest pain, sob, palpitations, abdominal pain, n/v/d. Vss, labs unremarkable. CTA carotid shows b/l carotid stenosis >70%. OR today for MV replacement and CEA today. 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 intact, no focal deficits Musculoskeletal: No paraspinal muscle tenderness, no muscle spasm Skin: Warm and intact Coagulation Studies Laboratory Tests Test 08/23/24 12:25 Prothrombin Time 10.7 SECONDS (9.0-12.0) INR International Normalized Ratio 1.0 INR Activated Partial Thromboplast Time 23 SECONDS (22-32) Coagulation Comments Problem\Assessment\Plan # Mitral valve regurgitation, severe # Acute on chronic diastolic heart failure, LVEF 60-65% -TTE form [facility] shows: LVEF 60-65% with left ventricular wall thickness, mildly dilated atrium, mild stenosis of aortic valve with mild regurgitation, s evere mitral valve regurgitation, mild tricuspid regurgitation, normal right ventricle, small to moderate pericardial effusion without tamponade -metoprolol, supplemental oxygen; follow EKG, CBC, CMP -consulted black oxide coating equipment tender Al Dang who will do cath tomorrow -08/22: cath today -08/24: MV replacement scheduled tomorrow (Dr. Soto) CTA carotid shows b/l carotid stenosis >70% -08/25: OR today for MV replacement and CEA today # GIB # Normocytic anemia # Gastritis -PPI, h/h stable # HTN # NIDDM # COPD -aspirin, reports adverse reaction to statin on home Repatha, prn bronchodilators; metoprolol succ, hydralazine, isosorbide di -LDL 48, A1c 5.6% Diet: NPO after midnight DVT/VTE Prophylaxis: SCDs, hold chemical anticoagulant in view of recent GIB Code Status: Full Code I spent a total of 30 minutes discussing Advanced Care Planning measures with the patient. Advance care planning: Discussed with patient the importance of advance care planning in case of emergent situation. We discussed various resuscitative measures/ ACP with the patient at the time of admission. Patient voiced understanding and patient has decided on a DNR/DNI. Date of Service: Aug 25, 2024 Billing Provider: SURENDRA TRIVEDI Common Visit Codes: [id number] INP/OBS CARE(HIGH) SURENDRA TRIVEDI Aug 25, 2024 10:54
[2024-08-25] MEDS ORDERED: isoflurane 100ml inhalation liquid IH ONE (12:52)
[2024-08-25] MEDS ORDERED: MIDAZolam 1mg/ml 10ml vial ONE (13:24)
[2024-08-25] MEDS ORDERED: SUfentanil 50mcg/ml 1ml amp IV ONE (13:24)
[2024-08-25] MEDS ORDERED: epiNEPHrine 1 mg/ml inj ONE (13:26)
[2024-08-25] MEDS ORDERED: ceFAZolin 1000mg inj ONE ×3 (13:26→18:21)
[2024-08-25] MEDS ORDERED: vancomycin 1,000mg inj ONE (13:34)
[2024-08-25] MEDS: ceFAZolin 1000mg inj IR ONE (13:40)
[2024-08-25] MEDS: diazepam 5mg tablet PO ONE (13:45)
[2024-08-25] MEDS ORDERED: Insulin Reg/NS 100units/100mL 100 ML IV SCH ×2 (13:50→13:54)
[2024-08-25] MEDS: vancomycin/NS 1 GM ADD-VANTAGE 250 ML IV ONE (13:50)
[2024-08-25] MEDS ORDERED: dextrose 50%-water 50ml dispensing syringe IV PRN ×2 (13:50→18:45)
[2024-08-25 14:45] LABS: ABG BASE EXCESS -1.8 mmol/L (-2.0-3.0); ABG HCO3 21.9 mmol/L (21.0-28.0); ABG OXYGEN SATURATION 97.9 % (94.0-98.0); ABG PCO2 32.9 mmHg (32.0-45.0); ABG PH 7.441 (7.350-7.450); ABG PO2 115.3 mmHg (83.0-108.0); CL (ABG) 106 mmol/L (98-107); FCOHb 0.5 % (0.5-1.5); FHHb 2.1 % (0.0-5.0); FMetHb 0.3 % (0.0-1.5); FO2Hb 97.1 % (94.0-98.0); GLUCOSE (ABG) 120 mg/dl (65-95); IONIZED CA (ABG) 1.18 mmol/L (1.15-1.33); K (ABG) 3.7 mmol/L (3.40-4.50); TOTAL HEMOGLOBIN 8.7 G/dl (12.0-16.0)
[2024-08-25 15:25] LABS: ABG BASE EXCESS -3.2 mmol/L (-2.0-3.0); ABG OXYGEN SATURATION 99.5 % (94.0-98.0); ABG PCO2 33.5 mmHg (32.0-45.0); ABG PH 7.415 (7.350-7.450); CL (ABG) 104 mmol/L (98-107); FCOHb 0.5 % (0.5-1.5); FHHb 0.5 % (0.0-5.0); FMetHb 0.3 % (0.0-1.5); FO2Hb 98.7 % (94.0-98.0); GLUCOSE (ABG) 142 mg/dl (65-95); IONIZED CA (ABG) 1.05 mmol/L (1.15-1.33); K (ABG) 5.1 mmol/L (3.40-4.50); TOTAL HEMOGLOBIN 7.4 G/dl (12.0-16.0)
[2024-08-25 15:41] LABS: ABG BASE EXCESS VENOUS 2.6 mmol/L (-2.0-3.0); ABG HCO3 VENOUS 27.7 mmol/L (22.0-29.0); ABG OXYGEN SATURATION VENOUS 87.7 % (60.0-85.0); ABG PCO2 VENOUS 45.1 mmHg (38.0-54.0); ABG PH (VENOUS) 7.406 (7.320-7.430); CL (ABG) 103 mmol/L (98-107); FCOHb VENOUS 0.6 % (0.5-1.5); FHHb VENOUS 12.2 %; FMetHb VENOUS 0.3 % (0.5-1.5); FO2Hb VENOUS 86.9 % (0-80.0); GLUCOSE (ABG) 153 mg/dl (65-95); IONIZED CA (ABG) 1.07 mmol/L (1.15-1.33); K (ABG) 4.3 mmol/L (3.40-4.50); TOTAL HEMOGLOBIN 8.9 G/dl (12.0-16.0)
[2024-08-25 16:08] LABS: ABG BASE EXCESS -0.9 mmol/L (-2.0-3.0); ABG HCO3 23.2 mmol/L (21.0-28.0); ABG PCO2 35.7 mmHg (32.0-45.0); ABG PH 7.431 (7.350-7.450); ABG PO2 238.1 mmHg (83.0-108.0); CL (ABG) 105 mmol/L (98-107); FCOHb 0.3 % (0.5-1.5); FMetHb 0.1 % (0.0-1.5); FO2Hb 98.6 % (94.0-98.0); GLUCOSE (ABG) 137 mg/dl (65-95); IONIZED CA (ABG) 1.08 mmol/L (1.15-1.33); K (ABG) 4.2 mmol/L (3.40-4.50); TOTAL HEMOGLOBIN 8.1 G/dl (12.0-16.0)
[2024-08-25 16:48] LABS: ABG BASE EXCESS -4.9 mmol/L (-2.0-3.0); ABG HCO3 21.2 mmol/L (21.0-28.0); ABG OXYGEN SATURATION 99.2 % (94.0-98.0); ABG PCO2 43.3 mmHg (32.0-45.0); ABG PH 7.307 (7.350-7.450); CL (ABG) 105 mmol/L (98-107); FCOHb 0.3 % (0.5-1.5); FHHb 0.8 % (0.0-5.0); FMetHb 0.3 % (0.0-1.5); FO2Hb 98.6 % (94.0-98.0); GLUCOSE (ABG) 145 mg/dl (65-95); IONIZED CA (ABG) 1.34 mmol/L (1.15-1.33); TOTAL HEMOGLOBIN 9.8 G/dl (12.0-16.0)
[2024-08-25 17:14] LABS: ABG BASE EXCESS -0.5 mmol/L (-2.0-3.0); ABG HCO3 24.5 mmol/L (21.0-28.0); ABG OXYGEN SATURATION 99.2 % (94.0-98.0); ABG PCO2 41.8 mmHg (32.0-45.0); ABG PH 7.386 (7.350-7.450); CL (ABG) 105 mmol/L (98-107); FCOHb 0.3 % (0.5-1.5); FHHb 0.8 % (0.0-5.0); FMetHb 0.1 % (0.0-1.5); FO2Hb 98.8 % (94.0-98.0); GLUCOSE (ABG) 120 mg/dl (65-95); IONIZED CA (ABG) 1.25 mmol/L (1.15-1.33); K (ABG) 5.3 mmol/L (3.40-4.50); TOTAL HEMOGLOBIN 9.8 G/dl (12.0-16.0)
--- NOTE | 2024-08-25 17:49 | CARDIOLOGY REPORT ---
APPROVED REPORT EXAM: Intraoperative transesophageal 2D, 3D, spectral and color flow Doppler echocardiogram. Study contains pre- and post-op images. Patient Location: CVOR Blood Pressure: 114 / 52 mmHg Heart Rate: 81 bpm Rhythm: SINUS Indications SEVERE MITRAL STENOSIS AND REGURGITATION mm MVR ASHLY PROBE PASSED BY: Sara TALLEY MD Accounts Receivable Processor: MA. Mindy MD / CV SURGEON: Petra BLEDSOE MD Previous echo: 08/20/24 [facility] EF: 60-65%; nlLV; modCLVH; nlRV; mLAE; mAS (PKV: 1.9?; GRAD: 14 / 8?); mA I; sevMR(m GRAD: 7); sevMAC; m/modPE; mTR LEFT VENTRICLE PRE: Small LV size with hyperdynamic function. Moderate concentric hypertrophy with prominent septal knuckle. LVEF is 75-80%; POST-OP: Unchanged. RIGHT VENTRICLE PRE: RV is normal size and function. Thickened RV free wall. POST-OP: Unchanged. ATRIA PRE: Left atrium is severely dilated. Left atrial appendage is visualized in multiple planes and appe ars normal without debris. Pulmonary vein identified and isolated by 2D and color Doppler. POST-OP: U nchanged. AORTIC VALVE PRE: Trileaflet AV appears mildly sclerotic without stenosis.Non coronary cusp predominantly effected . Minor insufficiency. POST-OP: Unchanged. MITRAL VALVE PRE: Moderate MV annular calcification (fixed, severe PML) with mild stenosis. Peak / mean gradients of 8 / 4 mmHG. Peak velocity is measured at 1.37 m/sec. Moderate, eccentric (3+) regurgitation. TDS due to poor visualization. POST-OP: Trivial MR. TRICUSPID VALVE PRE: TV appears structurally normal with trace regurgitation. POST-OP: Unchanged. PULMONIC VALVE PRE: Normal PV without stenosis, physiologic, mild, moderate, severe insufficiency. [place]-Lauro cathete r in the right heart across the pulmonic valve. POST-OP: Unchanged. GREAT VESSELS PRE: Aortic root is normal in size. Poorly visualized AO / ARCH PERICARDIUM PRE: Normal pericardium. Small, circumferential effusion without hemodynamic compromise. POST-OP: Unc hanged.
[2024-08-25 17:57] LABS: ABG HCO3 24.1 mmol/L (21.0-28.0); ABG OXYGEN SATURATION 99.1 % (94.0-98.0); ABG PCO2 41.6 mmHg (32.0-45.0); CL (ABG) 106 mmol/L (98-107); FCOHb 0.3 % (0.5-1.5); FHHb 0.9 % (0.0-5.0); FMetHb 0.3 % (0.0-1.5); FO2Hb 98.5 % (94.0-98.0); GLUCOSE (ABG) 112 mg/dl (65-95); IONIZED CA (ABG) 1.19 mmol/L (1.15-1.33); K (ABG) 4.7 mmol/L (3.40-4.50); TOTAL HEMOGLOBIN 8.9 G/dl (12.0-16.0)
[2024-08-25] MEDS ORDERED: INSULIN LISPRO 100 UNIT/ML INSULN.PEN MULTI-DOSE SQ SCH (18:00)
[2024-08-25 18:21] LABS: ABG BASE EXCESS -1.6 mmol/L (-2.0-3.0); ABG HCO3 23.6 mmol/L (21.0-28.0); ABG OXYGEN SATURATION 95.9 % (94.0-98.0); ABG PCO2 41.3 mmHg (32.0-45.0); ABG PH 7.374 (7.350-7.450); ABG PO2 89.1 mmHg (83.0-108.0); CL (ABG) 109 mmol/L (98-107); FCOHb 0.6 % (0.5-1.5); FHHb 4.1 % (0.0-5.0); FMetHb 0.3 % (0.0-1.5); GLUCOSE (ABG) 96 mg/dl (65-95); IONIZED CA (ABG) 1.36 mmol/L (1.15-1.33); K (ABG) 4.5 mmol/L (3.40-4.50); TOTAL HEMOGLOBIN 8.4 G/dl (12.0-16.0)
[2024-08-25] MEDS ORDERED: 0.9 % SODIUM CHLORIDE 10 ML VIAL ONE (18:21)
[2024-08-25] MEDS ORDERED: propofol inj 20 ML IV ONE (18:21)
[2024-08-25] MEDS ORDERED: LIDOcaine 2% (20mg/ml) 5ml vial ONE (18:21)
[2024-08-25] MEDS ORDERED: rocuronium 10mg/ml inj IV ONE ×4 (18:21→18:50)
[2024-08-25] MEDS ORDERED: dexamethasone sod phosphate 4mg/ml inj. ONE (18:22)
[2024-08-25] MEDS ORDERED: ondansetron/PF 4mg/2ml inj ONE (18:22)
[2024-08-25 18:24] LABS: ACTIVATED CLOTTING TIME 125 SEC (101-148)
[2024-08-25] MEDS ORDERED: FENTANYL-0.9 % NACL/PF 100 ML IV SCH (18:45)
[2024-08-25] MEDS ORDERED: Neutra Phos packet PO PRN (18:45)
[2024-08-25] MEDS: sodium chloride 0.45% 1,000 ML IV SCH (18:45)
[2024-08-25] MEDS: midazolam 100mg in NS 100ml 100 ML IV SCH (18:45)
[2024-08-25] MEDS ORDERED: mineral oil 133ml enema RC PRN (18:45)
[2024-08-25] MEDS ORDERED: sodium phosphate inj. 15 MMOL in dextrose 5%-water 250 ML IV PRN (18:45)
[2024-08-25] MEDS ORDERED: fentaNYL/PF 50MCG/1 ML 2ML syringe IV PRN (18:45)
[2024-08-25] MEDS: Insulin Reg/NS 100units/100mL 100 ML IV SCH (18:45)
[2024-08-25] MEDS ORDERED: nitroGLYCERIN-Tridil 50MG/D5W 250 ML IV PRN (18:45)
[2024-08-25] MEDS ORDERED: HYDROcodone/acetaminophen 10/325mg tab PO PRN (18:45)
[2024-08-25] MEDS ORDERED: bisacodyl 10mg suppository rectal RC PRN (18:45)
[2024-08-25] MEDS ORDERED: niCARDipine-NS 40mg/200ml IVPB 200 ML IV PRN (18:45)
[2024-08-25] MEDS ORDERED: NORepinephrine 8mg/ 250ml NS 250 ML IV PRN (18:45)
[2024-08-25] MEDS ORDERED: insulin glargine (Lantus) pen - multi-dose SQ PRN (18:45)
[2024-08-25] MEDS ORDERED: sodium phosphate inj. 30 MMOL in dextrose 5%-water 250 ML IV PRN (18:45)
[2024-08-25] MEDS ORDERED: potassium CL 10mEq/100ml bag 100 ML IV PRN (18:45)
[2024-08-25 19:18] LABS: ABG BASE EXCESS -4.2 mmol/L (-2.0-3.0); ABG HCO3 20.4 mmol/L (21.0-28.0); ABG OXYGEN SATURATION 94.3 % (94.0-98.0); ABG PCO2 (T) 34.8 mmHg (32.0-45.0); ABG PH (T) 7.384 (7.350-7.450); ABG PO2 (T) 73.8 mmHg (83.0-108.0); FCOHb 1.1 % (0.5-1.5); FHHb 5.6 % (0.0-5.0); FMetHb 0.3 % (0.0-1.5); MODE VENT - SIMV; PATIENT TEMPERATURE 36.4; PEEP 5 cm H2O; RESPIRATORY RATE 12 b/min; TIDAL VOLUME 500 mL; TOTAL HEMOGLOBIN 11.6 G/dl (12.0-16.0)
[2024-08-25 19:24] LABS: BASOPHILS % (AUTO) 0.4 % (0-1); EOSINOPHILS # (AUTO) 0.1 X10'3 (0-0.9); EOSINOPHILS % (AUTO) 0.5 % (0-6); HEMATOCRIT 33.3 % (35.0-45.0); HEMOGLOBIN 11.1 g/dl (12.0-16.0); LYMPHOCYTES # (AUTO) 0.7 X10'3 (1.1-4.8); LYMPHOCYTES % (AUTO) 6.5 % (21-51); MEAN CORPUSCULAR HEMOGLOBIN 29.6 PG (27.0-31.0); MEAN CORPUSCULAR HGB CONC 33.4 g/dL (33.0-36.5); MEAN CORPUSCULAR VOLUME 88.6 FL (78-98); MEAN PLATELET VOLUME 7.1 FL (7.4-10.4); MONOCYTES # (AUTO) 0.8 X10'3 (0-0.9); NEUTROPHILS # (AUTO) 9.4 X10'3 (1.8-7.7); NEUTROPHILS % (AUTO) 85.6 % (42-75); PLATELET COUNT 178 X10'3 (140-440); RED BLOOD COUNT 3.76 X10'6 (4.20-5.60); RED CELL DISTRIBUTION WIDTH 14.3 % (11.5-14.5)
--- NOTE | 2024-08-25 19:31 | OPERATIVE REPORT ---
Operative Report Operative Report Cardiovascular surgery operative report 25 August 2024 Preoperative diagnosis: Severe mitral insufficiency, critical bilateral carotid stenosis, left ventricular hypertrophy, recent gastrointestinal hemorrhage Postop diagnosis: Same Procedure: Mitral valve replacement with a 25 mm epic porcine mitral valve prosthesis Surgeon: Dr. Tim Soto fire control assistant: Dr. Ebenezer Avendaño and Mayito Locke PA-C Anesthesia: General via endotracheal tube Dr. Tesfaye Complications: None EBL: 200 mL Procedure: The patient was taken to the operating room placed in supine position. Following the induction of general oral endotracheal anesthesia and the placement of appropriate lines the anterior chest, abdomen and bilateral lower extremities were prepped and draped sterilely. Preop transesophageal echocardiography showed extensive calcification of the posterior annulus as well as the posterior leaflet with a essentially an immobile posterior leaflet and severe insufficiency. The mediastinum was performed in standard fashion and the patient was systemically heparinized. The pericardium was opened in midline and suspended. Single aortic and bicaval cannulation with tapes was accomplished. After ensuring an ACT of greater than 300 seconds cardiopulmonary bypass was instituted. The aorta was crossclamped and heart was arrested with cold blood [place]ido cardioplegia delivered antegrade through the aortic root. The caval tapes were then tightened to accomplished total cardiopulmonary bypass and the right atrium was opened transversely. The mitral valve was approached through the septum. Exposure was somewhat difficult. The posterior leaflet was completely immobile and heavily calcified. It was carefully excised and the annulus was debrided free of as much calcium as possible for the placement of sutures. There was concerned that too much debridement would result in a posterior rupture of the left ventricle. The anterior leaflet was detached from the anterior annulus and allowed to fall posteriorly to preserve its chordee. The annulus was then sized and a 25 mm epic porcine valve was chosen. This was rinsed per protocol. It was then implanted into the annulus using interrupted horizontal mattress sutures of pledgeted 2-0 Ethibond, placing the pledgets on the ventricular aspect. They were placed through the anterior leaflet posteriorly to preserve the chordee. The sutures were then placed through the ring of the valve and the valve was seated. The sutures were then tied to complete the implant. In the area of maximum calcification a strip of Rosalino felt was interposed between the annulus and the ring of the valve to help with perivalvular leaks. Th intra atrial septum was then closed with a running 4-0 Prolene suture. Similarly the left atriotomy was closed. A 35 mm atrial clip was placed across the base of the left atrial appendage. Temporary pacing wires then placed the anterior surface of the right ventricle and right atrium while warm blood was delivered antegrade through the aortic root. With a suction vent in the ascending aorta on high the aortic crossclamp was removed. The patient returned in a very bradycardic rhythm and AV pacing was necessary. Ventilation was resumed. The patient was then allowed to begin ejecting to a pressure of 90-100 mmHg. A transesophageal echocardiography was used to confirm adequacy of de-airing. Unfortunately it showed a very significant posterior leaflet perivalvular leak. Therefore the aorta was reached crossclamped and the heart was again arrested with cold blood [place]ido cardioplegia. The right atrium was again reopened as was the inter atrial septum. The valve was inspected. With great difficulty to pledgeted sutures were placed in the area of the perivalvular leak through the jennifer annular left atrial tissues and then through the sewing ring of the valve. This proved to be quite difficult due to poor exposure. When no further sutures could be placed due to extensive calcification the intra-atrial septum was reclosed. The right atrium was also closed and the patient was again given warm blood antegrade. With a suction vent in the ascending aorta on high the aortic crossclamp was again removed. A AV pacing was reinstituted and ventilation was again resumed. The patient was carefully allowed to begin ejecting to a pressure of 90-100 mmHg. This showed significant improvement in the perivalvular leak. She was therefore weaned from cardiopulmonary bypass and decannulated in standard fashion. Protamine solution was administered to reverse heparinization and careful hemostasis was achieved throughout the mediastinum. A 28 [place] José drain was placed posterior to the pericardial well with a 32 [place] straight chest tube placed anterior to the mediastinum. These were both secured to skin with 1. Silk. The chest was then closed by reapproximating the sternum in midline with interrupted [id number] of 7. Stainless steel wire in concert with a single zip fix sternal bands. The midline fascia, subcutaneous tissue and skin were closed in layers. Sterile dressings were applied and the chest was attached to water- seal. The patient was then returned to the ICU in critical but stable condition, having tolerated the procedure satisfactorily. There were no complications. Sponge, needle and instrument counts were correct x2 at the end the case. Mayito Locke PA-C was present for and assisted throughout the entire procedure. TIM SOTO III, MD Aug 25, 2024 19:31
[2024-08-25 19:32] LABS: APTT 27 SECONDS (22-32); INR 1.2 INR; PROTHROMBIN TIME 12.4 SECONDS (9.0-12.0)
[2024-08-25] MEDS: albumin (Human) 5% 250ml 250 ML IV PRN (19:33)
[2024-08-25] MEDS: MESSAGE TO NURSING PO ONE ×4 (19:34→19:35)
[2024-08-25 19:35] LABS: ALANINE AMINOTRANSFERASE 21 U/L (12-78); ALBUMIN 2.9 G/DL (3.4-5.0); ALBUMIN/GLOBULIN RATIO 1.7 (1.1-1.5); ALKALINE PHOSPHATASE 33 IU/L (46-116); ANION GAP 10 (8-16); ASPARTATE AMINO TRANSFERASE 59 U/L (10-37); BLOOD UREA NITROGEN 15 MG/DL (7-18); BUN/CREATININE RATIO 18.5 (10.0-20.0); CALCIUM 8.8 MG/DL (8.5-10.1); CHLORIDE 112 MMOL/L (99-107); CREATININE 0.81 MG/DL (0.40-0.90); GLUCOSE 102 MG/DL (70-104); PHOSPHORUS 3.4 MG/DL (2.3-4.5); SODIUM 148 MMOL/L (135-145); TOTAL CARBON DIOXIDE 26.3 MMOL/L (24-32); TOTAL PROTEIN 4.6 G/DL (6.4-8.2); eCRCL 61 ML/MIN; eGFR 69 ML/MIN
[2024-08-25] MEDS: ringers solution, lacted 1,000 ML IV ONE (19:35)
[2024-08-25] MEDS: midazolam 1 mg/ML 2ml injection IV ONE (19:36)
[2024-08-25 19:38] LABS: POTASSIUM 4.2 MMOL/L (3.5-5.1)
[2024-08-25] MEDS: magnesium sulf-water 4G/100mL 100 ML IV PRN (19:44)
--- NOTE | 2024-08-25 19:48 | RADIOLOGY REPORT ---
Clinical History POST OP Comparison None Without Contrast ROSANGELA ATKINS, [id number] Technique: Single view portable chest x-ray Findings: Endotracheal tube seen in position with its tip 4.3 cm above the beronica. An enteric tube is seen senior microstrategy developer ssing the diaphragm with its tip seen in the stomach. Right IJV Monroe-Lauro catheter with its tip seen in the proximal right pulmonary artery. Right IJV central venous line with its tip seen in the SVC. Subxiphoid chest tube with its tip seen projecting over the lower mediastinum. Bibasilar atelectasis. Bilateral perihilar accentuation of interstitial parenchymal markings could b e due to edema Postsurgical changes related to recent cardiac surgery and left atrial appendage clipping. Atheroscl erotic calcification of thoracic aorta. The cardiomediastinal silhouette is otherwise unremarkable f or an AP view. No acute osseous abnormality. The imaged part of the upper abdomen is unremarkable. Impression: Postsurgical changes related to recent cardiac surgery with support tubes and catheters seen in place This report was electronically signed by Sary Juarez MD on 08/25/2024 7:46:11 PM.
[2024-08-25] MEDS ORDERED: VANCOMYCIN 1GM 200ML H20 (PEG) 200 ML IV SCH (20:00)
[2024-08-25 20:01] LABS: MAGNESIUM 4.4 MG/DL (1.5-2.4)
[2024-08-25] MEDS: atorvastatin 10mg tablet PO SCH (20:06)
[2024-08-25] MEDS: sennosides/docusate sodium tablet PO SCH (20:09)
[2024-08-25] MEDS: vancomycin/NS 1 GM ADD-VANTAGE 250 ML IV SCH (20:09)
[2024-08-25] MEDS: potassium Cl 20mEq/100mL bag 100 ML IV PRN (20:10)
[2024-08-25] MEDS: morphine 2 MG/ML inj. syringe IV PRN (23:18)
[2024-08-25] MEDS: dexmedetomidin/NS 400mcg/100ml 100 ML IV PRN (23:39)
[2024-08-25] MEDS: pantoprazole 40 MG vial IV ONE (23:40)
[2024-08-25] MEDS: ceFAZolin/D5W- 1GM premix 50 ML IV SCH (23:54)
[2024-08-25] MEDS: acetaminophen 325mg tablet PO PRN (23:56)
[2024-08-26] VITALS (36 sets, daily range): BP systolic 102–177; BP diastolic 51–77; PULSE 80–86; RESP 8–18; O2SAT 91–95
[2024-08-26 01:18] LABS: BASOPHILS % (AUTO) 0.2 % (0-1); EOSINOPHILS % (AUTO) 0.1 % (0-6); HEMATOCRIT 28.8 % (35.0-45.0); LYMPHOCYTES # (AUTO) 0.5 X10'3 (1.1-4.8); LYMPHOCYTES % (AUTO) 4.9 % (21-51); MEAN CORPUSCULAR HEMOGLOBIN 30.2 PG (27.0-31.0); MEAN CORPUSCULAR HGB CONC 34.6 g/dL (33.0-36.5); MEAN CORPUSCULAR VOLUME 87.4 FL (78-98); MEAN PLATELET VOLUME 7.5 FL (7.4-10.4); MONOCYTES # (AUTO) 0.5 X10'3 (0-0.9); NEUTROPHILS # (AUTO) 9.1 X10'3 (1.8-7.7); NEUTROPHILS % (AUTO) 89.8 % (42-75); PLATELET COUNT 134 X10'3 (140-440); RED CELL DISTRIBUTION WIDTH 14.7 % (11.5-14.5); WHITE BLOOD COUNT 10.1 X10'3 (4.5-11.0)
[2024-08-26 01:31] LABS: ALBUMIN 3.2 G/DL (3.4-5.0); ANION GAP 12 (8-16); BLOOD UREA NITROGEN 19 MG/DL (7-18); BUN/CREATININE RATIO 17.3 (10.0-20.0); CALCIUM 8.2 MG/DL (8.5-10.1); CHLORIDE 114 MMOL/L (99-107); GLUCOSE 158 MG/DL (70-104); PHOSPHORUS 3.5 MG/DL (2.3-4.5); POTASSIUM 4.3 MMOL/L (3.5-5.1); SODIUM 149 MMOL/L (135-145); TOTAL CARBON DIOXIDE 23.3 MMOL/L (24-32); eCRCL 45 ML/MIN; eGFR 48 ML/MIN
[2024-08-26 02:35] LABS: ABG BASE EXCESS -3.6 mmol/L (-2.0-3.0); ABG HCO3 21.1 mmol/L (21.0-28.0); ABG OXYGEN SATURATION 94.8 % (94.0-98.0); ABG PCO2 (T) 36.2 mmHg (32.0-45.0); ABG PH (T) 7.382 (7.350-7.450); ABG PO2 (T) 76.5 mmHg (83.0-108.0); FCOHb 0.6 % (0.5-1.5); FHHb 5.2 % (0.0-5.0); FMetHb 0.3 % (0.0-1.5); FO2Hb 93.9 % (94.0-98.0); MODE VENT - SIMV; PATIENT TEMPERATURE 36.8; PEEP 10 cm H2O; RESPIRATORY RATE 12 b/min; TIDAL VOLUME 500 mL; TOTAL HEMOGLOBIN 10.3 G/dl (12.0-16.0)
[2024-08-26] MEDS: morphine 4 MG/ML inj SYRINge IV PRN (04:49)
--- NOTE | 2024-08-26 05:53 | RADIOLOGY REPORT ---
CHEST RADIOGRAPH Indication: POST OP Technique: Single frontal view of the chest was obtained Comparison: DI CHEST,SINGLE VIEW on DOS: 08/25/24 FINDINGS: Lines and Tubes: The endotracheal tube terminates 5.8 cm above the beronica. Right central venous gayla ter terminates in the superior vena cava. Right IJ access swan-Lauro catheter is present with its tip projecting over the pulmonary outflow tract. Left atrial appendage clip is noted. Enteric tube term inates in the stomach. Lungs: Diffuse bilateral opacities which may reflect edema, similar to prior study. Pleura: Bilateral pleural effusions similar to prior study. No pneumothorax. Cardiomediastinal contours: Unremarkable Bones: No acute osseous abnormality. IMPRESSION: 1. 1. Support lines and tubes unchanged in position. 2. Bilateral pleural effusions and pulmonary edema similar to prior study.
[2024-08-26] MEDS: pantoprazole 40 MG vial IV SCH (07:44)
[2024-08-26] MEDS: aspirin 81mg tab.chew PO SCH (07:44)
[2024-08-26] MEDS: metoprolol tartrate 12.5mg (1/2 tablet) PO SCH (07:45)
[2024-08-26 07:57] LABS: ALANINE AMINOTRANSFERASE 17 U/L (12-78); ALBUMIN/GLOBULIN RATIO 1.8 (1.1-1.5); ALKALINE PHOSPHATASE 32 IU/L (46-116); ASPARTATE AMINO TRANSFERASE 70 U/L (10-37); BILIRUBIN,TOTAL 2.7 MG/DL (0.1-1.0)
[2024-08-26 08:42] LABS: ABG PO2 403.6 mmHg (83.0-108.0)
[2024-08-26 08:42] LABS: ABG PO2 454.2 mmHg (83.0-108.0)
[2024-08-26 08:43] LABS: ABG PO2 411.5 mmHg (83.0-108.0)
[2024-08-26 08:43] LABS: K (ABG) 6.7 mmol/L (3.40-4.50)
[2024-08-26 08:45] LABS: ABG PO2 410.5 mmHg (83.0-108.0)
--- NOTE | 2024-08-26 08:45 | PROGRESS NOTE ---
Progress Note CV Providers to CC ~ Progress Note: POD#1 MVR Central Line/PICC still needed: Yes Central Line/Picc Necessity: Hemodynamic Monitoring Adkins Indications Met/Not Met: F/C Indications Met Antibiotics Ordered?: Yes If Yes, Indications?: Surgical prophylaxis Subjective Subjective Remains intubated but moves all 4s. The sponge appropriately to requests Objective Vitals Vital Signs Date Time Temp Pulse Resp B/P (MAP) Pulse Ox O2 Delivery O2 Flow Rate FiO2 08/26/24 08:00 97.5 80 18 120/58 (79) 93 Mechanical Ventilator 60 18 60 08/24/24 19:50 0 Lab Results: 08/26/24 0106 08/26/24 0106 Objective Lungs with occasional crackles anteriorly. Fairly good expansion. Cardiac exam regular rate and rhythm AV paced sternal incision clean and dry. Chest tube output moderate with no air leak Coagulation Studies Laboratory Tests Test 08/25/24 18:26 08/25/24 19:10 Heparin Level (COAG) 0 MG/KG Calculated Heparin Req (Hep Assay) 94817 UNITS Calculated Protamine Req (Hep Assay 0 MG Activated Clotting Time 125 SEC (101-148) Prothrombin Time 12.4 SECONDS (9.0-12.0) H INR International Normalized Ratio 1.2 INR Activated Partial Thromboplast Time 27 SECONDS (22-32) Coagulation Comments Cardiac Rhythm: AV Paced Problem\Assessment\Plan Additional Plan Doing fairly well following somewhat difficult mitral valve replacement. Hemodynamics satisfactory. Okay to discontinue Tunas. She remains intubated although now on 60% and 10 of PEEP. Continue to try to wean today. Hold beta blockade until underlying rhythm recovers. AYALA BLEDSOE III, MD Aug 26, 2024 08:45
--- NOTE | 2024-08-26 08:49 | PROGRESS NOTE ---
Progress Note CV Providers to CC ~ Antibiotics Ordered?: No Subjective Subjective S/P MV replacement, LINA ligation POD # 1. She remains intubated with 60% FiO2 and PEEP of 10. On some precedex. She awakens and follows commands, moves all extr. Objective Vitals Vital Signs Date Time Temp Pulse Resp B/P (MAP) Pulse Ox O2 Delivery O2 Flow Rate FiO2 08/26/24 08:00 97.5 80 18 120/58 (79) 93 Mechanical Ventilator 60 18 60 08/24/24 19:50 0 Lab Results: 08/26/24 0106 08/26/24 0106 Objective Lungs - diminished at bases, crackles bilat Heart - RRR, AV paced with junctional at 55 underlying. Abd./Extr - Ok Incisions - CDI Coagulation Studies Laboratory Tests Test 08/25/24 18:26 08/25/24 19:10 Heparin Level (COAG) 0 MG/KG Calculated Heparin Req (Hep Assay) 00373 UNITS Calculated Protamine Req (Hep Assay 0 MG Activated Clotting Time 125 SEC (101-148) Prothrombin Time 12.4 SECONDS (9.0-12.0) H INR International Normalized Ratio 1.2 INR Activated Partial Thromboplast Time 27 SECONDS (22-32) Coagulation Comments Cardiac Rhythm: AV Paced Problem\Assessment\Plan Additional Plan POD # 1 CI 2.3 on no Inotropes. Work towards extubation. Supervising Co-signing Provider: ALLYSON Luong Aug 26, 2024 08:49
[2024-08-26 08:51] LABS: ACT @ 1.70 U 323 SEC (193-297); ACT @ 2.84 U 431 SEC (260-420); BASELINE ACT 149 SEC (101-148); PATIENT WEIGHT 83.0k KG
--- NOTE | 2024-08-26 10:19 | PATHOLOGY REPORT ---
[facility] [address] [place] [address] SURGICAL PATHOLOGY REPORT CaseNumber: [id number] Surgeon:Tim Soto M.D. CLINICAL INFORMATION CLINICAL INFORMATION: Mitral valve insufficiency. Cardia cath needed. DIAGNOSIS DIAGNOSIS: HEART, MITRAL VALVE; REPLACEMENT - MILDLY CALCIFIED MITRAL VALVE LEAFLETS. MICROSCOPIC DESCRIPTION MICROSCOPIC DESCRIPTION: Not performed. (jf) GROSS DESCRIPTION GROSS DESCRIPTION: Received in container formalin labeled with the patient's name, number, and "arya l valve leaflets" is a 2.5 cm area of mildly calcified mitral valve leaflets. There are no perforatio ns or vegetations identified. No sections. The time at which the specimen was removed was 1530. The t flores at which the specimen was placed in formalin was 1630. Electronically signed by: Ijeoma Rushing M.D. 08/26/2024 9:42:00 AM
[2024-08-26] MEDS ORDERED: glucagon, human recombinant 1mg kit SUBCUT PRN (14:50)
[2024-08-26] MEDS ORDERED: dextrose 50%-water 50ml dispensing syringe IV PRN ×2 (14:50)
[2024-08-26] MEDS ORDERED: DEXTROSE 15 GM of carb/4 tabs (each vial/BOTTLE has 4 tablets) PO PRN ×2 (14:50)
--- NOTE | 2024-08-26 15:51 | PROGRESS NOTE ---
Daily Progress Note Providers to CC ~ no new complaint today, pain well controlled patient extubated Central Line/PICC still needed: No Adkins-Non Protocol Adkins Indications Met/Not Met: F/C Indications Met Antibiotic Timeout Antibiotic Ordered?: Yes MRSA Education MRSA Education Provided to pt: Yes Subjective As above Objective Vital Signs Date Time Temp Pulse Resp B/P (MAP) Pulse Ox O2 Delivery O2 Flow Rate FiO2 08/26/24 15:03 14 08/26/24 15:00 97.5 80 146/64 (91) 91 Nasal Cannula 4.0 08/26/24 14:27 40 Vital signs, stable ,afebrile. Pulse Oximetry reflects adequate oxygenation on 4 L oxygen nasal cannula General: well developed, well nourished. Awake , alert, and oriented x4, resting comfortably in the bed, in no acute distress . Skin: Warm, dry, no pallor, no rash or petechiae. HEENT: Atraumatic, normocephalic, EOMI, anicteric sclera B; pink conjunctiva; PERRLA, normal oropharynx, moist oral and nasal mucosa. Tympanic membrane , nose , throat clear. Neck: Trachea midline. Supple, full range of motion, no JVD, bruit , hepatojugular reflex , lymphadenopathy or masses, or other lesions Cardiac: Regular rhythm, regular rate no murmurs, rubs, or gallops. Normal S1 and S2, no S3 noticed. PMI is normal. Respiratory: Equal breath sounds bilaterally, no tachypnea; lungs clear to auscultation bilaterally, no wheezing ,rub or rales, or crackles. Chest wall is symmetric and without deformity. No signs of trauma. Chest wall is nontender. No signs of respiratory distress. Resonance is normal upon percussion bilaterally. Chest tube functional Gastrointestinal: Abdomen symmetric, non-distended, soft, non-tender, normal bowel sounds x4 quadrant, normoactive, no hepatosplenomegaly , no masses , no bruit, no flank pain bilaterally. No voluntary guarding, rebound, or rigidity. No tenderness to percussion. No pulsatile masses. Equal femoral pulses. No Tyson's sign or McBurney point tenderness. Back; no CVA tenderness bilaterally, no deformities. Neck and back are without deformity as well. No tenderness noted on palpation of the spinous processes. Spinous processes are midline. Cervical, thoracic, and lumbar paraspinal muscles are not tender and are without spasm. : Not indicated Musculoskeletal: Extremities, normal range of motion, non-tender, muscle strength 5/5 x 4. Negative Homans signs bilaterally on lower extremity. Distal pulses full symmetrical, no clubbing, cyanosis , edema. Neurological: Speech is clear, alert, and oriented x 4. No motor or sensory deficit, deep tendon reflexes normal, cerebellar intact. Cranial nerves II-XII intact. Psych: Alert and or appropriate, normal affect. Vascular: Good distal pulses, which are equal x4; capillary refill less than 2 seconds. Lymphatic, no lymphadenopathy. Result Diagram: 08/26/24 0106 08/26/24 0106 Coagulation Studies Laboratory Tests Test 08/25/24 14:50 08/25/24 18:26 08/25/24 19:10 Patient Sex (Coag) F Patient Height (Coag) 173cm Patient Weight (Coag) 83.0k KG Patient Blood Volume 4836 ML Pump Volume 1500 ML Total Blood Volume 6336 ML Projected Heparin Concentration 2.2 MG/KG Heparin [place] 112 Calculated Heparin Bolus 52414 UNITS Activated Coagulation Time Baseline 149 SEC (101-148) H Activated Coag Time 1.70 U/mL 323 SEC (193-297) H Activated Coag Time 2.84 U/mL 431 SEC (260-420) H Heparin Level (COAG) 0 MG/KG Calculated Heparin Req (Hep Assay) 08686 UNITS Calculated Protamine Req (Hep Assay 0 MG Activated Clotting Time 125 SEC (101-148) Prothrombin Time 12.4 SECONDS (9.0-12.0) H INR International Normalized Ratio 1.2 INR Activated Partial Thromboplast Time 27 SECONDS (22-32) Coagulation Comments Problem\Assessment\Plan Assessment/plan # Mitral valve regurgitation, severe # Acute on chronic diastolic heart failure, LVEF 60-65% -TTE form [facility] shows: LVEF 60-65% with left ventricular wall thickness, mildly dilated atrium, mild stenosis of aortic valve with mild regurgitation, s evere mitral valve regurgitation, mild tricuspid regurgitation, normal right ventricle, small to moderate pericardial effusion without tamponade -metoprolol, supplemental oxygen; follow EKG, CBC, CMP -consulted editor magazine Al Dang who will do cath tomorrow -08/22: cath today -08/24: MV replacement scheduled tomorrow (Dr. Soto) CTA carotid shows b/l carotid stenosis >70% -status post MV replacement , postoperative day 1., good recovery Hypermagnesemia, IV magnesium discontinued # GIB # Normocytic anemia # Gastritis -PPI, h/h stable # HTN # NIDDM # COPD -aspirin, reports adverse reaction to statin on home Repatha, prn bronchodilators; metoprolol succ, hydralazine, isosorbide di -LDL 48, A1c 5.6% Diet: NPO after midnight DVT/VTE Prophylaxis: SCDs, hold chemical anticoagulant in view of recent GIB Code Status: Full Code I spent a total of 30 minutes discussing Advanced Care Planning measures with the patient. Advance care planning: Discussed with patient the importance of advance care planning in case of emergent situation. We discussed various resuscitative measures/ ACP with the patient at the time of admission. Patient voiced understanding and patient has decided on a DNR/DNI. Sepsis Screening Reassessment Date: Aug 26, 2024 Date of Service: Aug 26, 2024 Billing Provider: GLENIS DOCKERY MD Common Visit Codes: [id number] INP/OBS CARE(HIGH) GLENIS DOCKERY MD Aug 26, 2024 15:51
[2024-08-26] MEDS: HYDROcodone/acetaminophen 10/325mg tab PO PRN (16:49)
[2024-08-26] MEDS: INSULIN LISPRO 100 UNIT/ML INSULN.PEN MULTI-DOSE SQ SCH (17:00)
[2024-08-26] MEDS: insulin glargine (Lantus) pen - multi-dose SQ SCH (19:56)
[2024-08-26] MEDS ORDERED: mineral oil/petrolatum ophthal oint EACHEYE SCH (20:00)
[2024-08-27] VITALS (26 sets, daily range): BP systolic 84–161; BP diastolic 40–77; PULSE 72–85; RESP 9–20; O2SAT 90–97
[2024-08-27 02:43] LABS: BASOPHILS % (AUTO) 0.1 % (0-1); EOSINOPHILS % (AUTO) 0 % (0-6); HEMATOCRIT 27.3 % (35.0-45.0); HEMOGLOBIN 9.3 g/dl (12.0-16.0); LYMPHOCYTES # (AUTO) 0.4 X10'3 (1.1-4.8); LYMPHOCYTES % (AUTO) 3.3 % (21-51); MEAN CORPUSCULAR HEMOGLOBIN 30.2 PG (27.0-31.0); MEAN CORPUSCULAR HGB CONC 34.1 g/dL (33.0-36.5); MEAN CORPUSCULAR VOLUME 88.8 FL (78-98); MEAN PLATELET VOLUME 7.7 FL (7.4-10.4); MONOCYTES % (AUTO) 8.3 % (2-12); NEUTROPHILS # (AUTO) 10.6 X10'3 (1.8-7.7); NEUTROPHILS % (AUTO) 88.3 % (42-75); PLATELET COUNT 136 X10'3 (140-440); RED BLOOD COUNT 3.07 X10'6 (4.20-5.60); RED CELL DISTRIBUTION WIDTH 14.8 % (11.5-14.5)
[2024-08-27 02:55] LABS: ALANINE AMINOTRANSFERASE 21 U/L (12-78); ALBUMIN 3.4 G/DL (3.4-5.0); ALBUMIN/GLOBULIN RATIO 1.6 (1.1-1.5); ALKALINE PHOSPHATASE 36 IU/L (46-116); ANION GAP 8 (8-16); ASPARTATE AMINO TRANSFERASE 90 U/L (10-37); BILIRUBIN,TOTAL 0.7 MG/DL (0.1-1.0); BLOOD UREA NITROGEN 40 MG/DL (7-18); BUN/CREATININE RATIO 34.8 (10.0-20.0); CALCIUM 8.3 MG/DL (8.5-10.1); CHLORIDE 111 MMOL/L (99-107); CREATININE 1.15 MG/DL (0.40-0.90); GLUCOSE 161 MG/DL (70-104); PHOSPHORUS 5.7 MG/DL (2.3-4.5); POTASSIUM 4.5 MMOL/L (3.5-5.1); SODIUM 143 MMOL/L (135-145); TOTAL CARBON DIOXIDE 24.3 MMOL/L (24-32); TOTAL PROTEIN 5.5 G/DL (6.4-8.2); eCRCL 43 ML/MIN; eGFR 46 ML/MIN
[2024-08-27] MEDS: niCARDipine-NS 40mg/200ml IVPB 200 ML IV PRN (03:26)
--- NOTE | 2024-08-27 06:02 | RADIOLOGY REPORT ---
CHEST RADIOGRAPH Indication: POST OP Technique: Single frontal view of the chest was obtained Comparison: DI CHEST,SINGLE VIEW on DOS: 08/26/24 FINDINGS: Lines and Tubes: The endotracheal tube has been removed. The enteric tube has also been removed. Swa n-Lauro catheter also removed. Right central venous catheter terminates in the superior vena cava. Me diastinal chest tube is unchanged. Left atrial appendage clip. Lungs: Diffuse bilateral opacities which may reflect edema, not significantly changed. Pleura: Bilateral pleural effusions similar to prior study. No pneumothorax. Cardiomediastinal contours: Stable. Bones: No acute osseous abnormality. IMPRESSION: 1. Removal of the endotracheal and enteric tube. [place]-Lauro catheter also removed. 2. Bilateral pleural effusions and pulmonary edema similar to prior study.
[2024-08-27] MEDS: ondansetron/PF 4mg/2ml inj IV PRN (07:14)
--- NOTE | 2024-08-27 08:09 | PROGRESS NOTE ---
Progress Note CV Providers to CC ~ Antibiotics Ordered?: No Subjective Subjective S/P MV replacement POD # 2. She just got up to the chair this morning. First time up. Pacing continues. She is on Cardene for BP. Appear to be junctional underlying with rate in the 50's. CT output is 145 last 12 hours. Objective Vitals Vital Signs Date Time Temp Pulse Resp B/P (MAP) Pulse Ox O2 Delivery O2 Flow Rate FiO2 08/27/24 07:36 15 08/27/24 06:00 97.9 80 142/57 (85) 92 Nasal Cannula 4.0 08/26/24 16:20 36 Lab Results: 08/27/24 0225 08/27/24 0225 Objective Lungs - mildly diminished at bases, CXR some haziness R Heart - RRR, paced Abd/Extr - OK Incisions - CDI Coagulation Studies Laboratory Tests Test 08/25/24 14:50 08/25/24 18:26 08/25/24 19:10 Patient Sex (Coag) F Patient Height (Coag) 173cm Patient Weight (Coag) 83.0k KG Patient Blood Volume 4836 ML Pump Volume 1500 ML Total Blood Volume 6336 ML Projected Heparin Concentration 2.2 MG/KG Heparin [place] 112 Calculated Heparin Bolus 29324 UNITS Activated Coagulation Time Baseline 149 SEC (101-148) H Activated Coag Time 1.70 U/mL 323 SEC (193-297) H Activated Coag Time 2.84 U/mL 431 SEC (260-420) H Heparin Level (COAG) 0 MG/KG Calculated Heparin Req (Hep Assay) 53940 UNITS Calculated Protamine Req (Hep Assay 0 MG Activated Clotting Time 125 SEC (101-148) Prothrombin Time 12.4 SECONDS (9.0-12.0) H INR International Normalized Ratio 1.2 INR Activated Partial Thromboplast Time 27 SECONDS (22-32) Coagulation Comments Cardiac Rhythm: A Paced, V Paced, AV Paced Problem\Assessment\Plan Additional Plan POD # 2 Mobilize. Likely DC chest drains later today. Continues with pacing this morning. Sepsis Screening Reassessment Date: Aug 27, 2024 Supervising Co-signing Provider: ALLYSON Luong Aug 27, 2024 08:09
[2024-08-27] MEDS: pantoprazole 40mg Tablet.DR PO SCH (08:19)
[2024-08-27] MEDS: furosemide 40mg/4ml inj IV ONE (08:40)
[2024-08-27] MEDS: metoclopramide 5 mg/ml inj IV PRN (10:24)
--- NOTE | 2024-08-27 14:15 | PROCEDURE NOTE - Respiratory ---
Procedure Note-Respiratory Providers to CC Copies To 1: AYALA BLEDSOE III, MD Procedure Name: This is a spirometry study dated August 23, 2024. The spirometry study was performed both before and after inhaled bronchodilator. Spirometry measurements: There is significant reduction in both the forced vital capacity and the FEV1. The FEV1 ratio is also diminished. All of the measured flow rates show significant reduction. After inhaled bronchodilator there is no significant change in the flow volume loop. Conclusion: This study is abnormal. There is evidence for obstructive ventilatory defect in the moderately severe category. There may also be an element of restrictive lung disease which is suggested by the reduced forced vital capacity. We have no previous studies for comparison. Close pulmonary attention is recommended as this patient undergoes cardiovascular evaluation and treatment. PHILLY SOSA MD Aug 27, 2024 14:15
--- NOTE | 2024-08-27 14:39 | PROGRESS NOTE ---
Daily Progress Note Providers to CC Complaint, shortness of breath, mild cough ~ Central Line/PICC still needed: No Adkins-Non Protocol Adkins Indications Met/Not Met: F/C Indications Not Met Antibiotic Timeout Antibiotic Ordered?: Yes MRSA Education MRSA Education Provided to pt: Yes Subjective As above Objective Vital Signs Date Time Temp Pulse Resp B/P (MAP) Pulse Ox O2 Delivery O2 Flow Rate FiO2 08/27/24 14:00 98.4 76 10 110/72 (85) 94 Nasal Cannula 6.0 08/27/24 08:17 44 Vital signs, stable ,afebrile. Pulse Oximetry reflects adequate oxygenation, on 6 L oxygen nasal cannula General: well developed, well nourished. Awake , alert, and oriented x4, resting comfortably in the bed, in no acute distress . Skin: Warm, dry, no pallor, no rash or petechiae. HEENT: Atraumatic, normocephalic, EOMI, anicteric sclera B; pink conjunctiva; PERRLA, normal oropharynx, moist oral and nasal mucosa. Tympanic membrane , nose , throat clear. Neck: Trachea midline. Supple, full range of motion, no JVD, bruit , hepatojugular reflex , lymphadenopathy or masses, or other lesions Cardiac: Regular rhythm, regular rate no murmurs, rubs, or gallops. Normal S1 and S2, no S3 noticed. PMI is normal. Respiratory: Equal breath sounds bilaterally, no tachypnea; lungs clear to auscultation bilaterally, no wheezing ,rub or rales, or crackles. Chest wall is symmetric and without deformity. No signs of trauma. Chest wall is nontender. No signs of respiratory distress. Resonance is normal upon percussion bilaterally. Gastrointestinal: Abdomen symmetric, non-distended, soft, non-tender, normal bowel sounds x4 quadrant, normoactive, no hepatosplenomegaly , no masses , no bruit, no flank pain bilaterally. No voluntary guarding, rebound, or rigidity. No tenderness to percussion. No pulsatile masses. Equal femoral pulses. No Tyson's sign or McBurney point tenderness. Back; no CVA tenderness bilaterally, no deformities. Neck and back are without deformity as well. No tenderness noted on palpation of the spinous processes. Spinous processes are midline. Cervical, thoracic, and lumbar paraspinal muscles are not tender and are without spasm. Musculoskeletal: Extremities, normal range of motion, non-tender, muscle strength 5/5 x 4. Negative Homans signs bilaterally on lower extremity. Distal pulses full symmetrical, no clubbing, cyanosis , edema. Neurological: Speech is clear, alert, and oriented x 4. No motor or sensory deficit, deep tendon reflexes normal, cerebellar intact. Cranial nerves II-XII intact. Psych: Alert and or appropriate, normal affect. Vascular: Good distal pulses, which are equal x4; capillary refill less than 2 seconds. Lymphatic, no lymphadenopathy. Result Diagram: 08/27/2422408/27/24224 Coagulation Studies Laboratory Tests Test 08/25/24 14:50 08/25/24 18:26 08/25/24 19:10 Patient Sex (Coag) F Patient Height (Coag) 173cm Patient Weight (Coag) 83.0k KG Patient Blood Volume 4836 ML Pump Volume 1500 ML Total Blood Volume 6336 ML Projected Heparin Concentration 2.2 MG/KG Heparin [place] 112 Calculated Heparin Bolus 41006 UNITS Activated Coagulation Time Baseline 149 SEC (101-148) H Activated Coag Time 1.70 U/mL 323 SEC (193-297) H Activated Coag Time 2.84 U/mL 431 SEC (260-420) H Heparin Level (COAG) 0 MG/KG Calculated Heparin Req (Hep Assay) 37789 UNITS Calculated Protamine Req (Hep Assay 0 MG Activated Clotting Time 125 SEC (101-148) Prothrombin Time 12.4 SECONDS (9.0-12.0) H INR International Normalized Ratio 1.2 INR Activated Partial Thromboplast Time 27 SECONDS (22-32) Coagulation Comments Problem\Assessment\Plan Assessment/plan # Mitral valve regurgitation, severe # Acute on chronic diastolic heart failure, LVEF 60-65% -TTE form [facility] shows: LVEF 60-65% with left ventricular wall thickness, mildly dilated atrium, mild stenosis of aortic valve with mild regurgitation, s evere mitral valve regurgitation, mild tricuspid regurgitation, normal right ventricle, small to moderate pericardial effusion without tamponade -metoprolol, supplemental oxygen; follow EKG, CBC, CMP -consulted printing mechanist Al Dang -08/22: cath -08/24: MV replacement scheduled tomorrow (Dr. Soto) CTA carotid shows b/l carotid stenosis >70% postoperative day 2. Good recovery -status post MV replacement , postoperative day 2., good recovery Hypermagnesemia, IV magnesium discontinued, resolving # GIB # Normocytic anemia # Gastritis -PPI, h/h stable # HTN # NIDDM # COPD -aspirin, reports adverse reaction to statin on home Repatha, prn bronchodilators; metoprolol succ, hydralazine, isosorbide di -LDL 48, A1c 5.6% Diet: NPO after midnight DVT/VTE Prophylaxis: SCDs, hold chemical anticoagulant in view of recent GIB Code Status: Full Code Sepsis Screening Reassessment Date: Aug 27, 2024 Date of Service: Aug 27, 2024 Billing Provider: GLENIS DOCKERY MD Common Visit Codes: [id number] INP/OBS CARE(HIGH) GLENIS DOCKERY MD Aug 27, 2024 14:39
[2024-08-27] MEDS: acetaminophen 325mg tablet PO PRN (17:16)
[2024-08-27] MEDS: lactose-reduced food (Ensure Enlive) - 237ml bottle PO SCH (19:00)
[2024-08-27] MEDS: JUVEN Shake w/Arg/Glut/Ca2+Bmb (Juven 19.3gm) pkt 240ml PO SCH (19:00)
[2024-08-28] VITALS (31 sets, daily range): BP systolic 78–152; BP diastolic 52–85; PULSE 73–91; RESP 12–22; O2SAT 91–97
[2024-08-28 03:15] LABS: ALANINE AMINOTRANSFERASE 18 U/L (12-78); ALBUMIN 3.2 G/DL (3.4-5.0); ALBUMIN/GLOBULIN RATIO 1.3 (1.1-1.5); ALKALINE PHOSPHATASE 38 IU/L (46-116); ANION GAP 5 (8-16); ASPARTATE AMINO TRANSFERASE 54 U/L (10-37); BILIRUBIN,TOTAL 0.7 MG/DL (0.1-1.0); BLOOD UREA NITROGEN 48 MG/DL (7-18); BUN/CREATININE RATIO 51.6 (10.0-20.0); CALCIUM 8.5 MG/DL (8.5-10.1); CHLORIDE 108 MMOL/L (99-107); CREATININE 0.93 MG/DL (0.40-0.90); GLUCOSE 140 MG/DL (70-104); MAGNESIUM 2.4 MG/DL (1.5-2.4); PHOSPHORUS 3.2 MG/DL (2.3-4.5); SODIUM 140 MMOL/L (135-145); TOTAL CARBON DIOXIDE 27.4 MMOL/L (24-32); TOTAL PROTEIN 5.6 G/DL (6.4-8.2); eCRCL 53 ML/MIN; eGFR 59 ML/MIN
[2024-08-28 03:16] LABS: BASOPHILS % (AUTO) 0.1 % (0-1); EOSINOPHILS % (AUTO) 0.1 % (0-6); HEMATOCRIT 26.3 % (35.0-45.0); HEMOGLOBIN 8.9 g/dl (12.0-16.0); LYMPHOCYTES # (AUTO) 0.6 X10'3 (1.1-4.8); LYMPHOCYTES % (AUTO) 5.2 % (21-51); MEAN CORPUSCULAR HGB CONC 33.8 g/dL (33.0-36.5); MEAN CORPUSCULAR VOLUME 88.7 FL (78-98); MEAN PLATELET VOLUME 7.6 FL (7.4-10.4); MONOCYTES # (AUTO) 0.9 X10'3 (0-0.9); MONOCYTES % (AUTO) 8.2 % (2-12); NEUTROPHILS # (AUTO) 9.3 X10'3 (1.8-7.7); NEUTROPHILS % (AUTO) 86.4 % (42-75); PLATELET COUNT 128 X10'3 (140-440); RED BLOOD COUNT 2.96 X10'6 (4.20-5.60); RED CELL DISTRIBUTION WIDTH 14.9 % (11.5-14.5); WHITE BLOOD COUNT 10.8 X10'3 (4.5-11.0)
--- NOTE | 2024-08-28 06:50 | RADIOLOGY REPORT ---
EXAM: XR Chest, 1 View CLINICAL INDICATION: ET Tube PLacement TECHNIQUE: Frontal view of the chest. COMPARISON: DI CHEST,SINGLE VIEW on DOS: 08/27/24, DI CHEST,SINGLE VIEW on DOS: 08/26/24, DI CHEST,SI NGLE VIEW on DOS: 08/25/24 FINDINGS: LUNGS AND PLEURAL SPACES: Bilateral pleural effusions. HEART: Cardiomegaly with mild congestion. MEDIASTINUM: Unremarkable. Normal mediastinal contour. BONES/JOINTS: Unremarkable. No acute fracture. TUBES, LINES AND DEVICES: Right internal jugular central venous catheter tip in the superior vena c tre. OTHER FINDINGS: . . . IMPRESSION: 1. Cardiomegaly with mild congestion. 2. Bilateral pleural effusions.
--- NOTE | 2024-08-28 08:22 | PROGRESS NOTE ---
Progress Note CV Providers to CC ~ Antibiotics Ordered?: No Subjective Subjective S/P MV replacement, LINA ligation POD # 3. She is alert and has no current complaints. Was nauseated yesterday. Vomited when she ambulated to the door of her room yesterday. She remains paced. Tracking atrial spikes. Underlying rate now in the 70's. Objective Vitals Vital Signs Date Time Temp Pulse Resp B/P (MAP) Pulse Ox O2 Delivery O2 Flow Rate FiO2 08/28/24 07:37 77 15 95 Nasal Cannula* 4 36 08/28/24 07:00 99.3 123/83 (96) Lab Results: 08/28/24 0225 08/28/24 0225 Objective Lungs - some crackles. Heart - RRR, paced Abd/Extr - OK Incisions - CDI Coagulation Studies Laboratory Tests Test 08/25/24 14:50 08/25/24 18:26 08/25/24 19:10 Patient Sex (Coag) F Patient Height (Coag) 173cm Patient Weight (Coag) 83.0k KG Patient Blood Volume 4836 ML Pump Volume 1500 ML Total Blood Volume 6336 ML Projected Heparin Concentration 2.2 MG/KG Heparin [place] 112 Calculated Heparin Bolus 33504 UNITS Activated Coagulation Time Baseline 149 SEC (101-148) H Activated Coag Time 1.70 U/mL 323 SEC (193-297) H Activated Coag Time 2.84 U/mL 431 SEC (260-420) H Heparin Level (COAG) 0 MG/KG Calculated Heparin Req (Hep Assay) 66364 UNITS Calculated Protamine Req (Hep Assay 0 MG Activated Clotting Time 125 SEC (101-148) Prothrombin Time 12.4 SECONDS (9.0-12.0) H INR International Normalized Ratio 1.2 INR Activated Partial Thromboplast Time 27 SECONDS (22-32) Coagulation Comments Cardiac Rhythm: V Paced Problem\Assessment\Plan Additional Plan POD # 3 CT output now minimal and serous. DC drains. Continue mobilization efforts today. Pacing continues. CXR shows congestion. Continue diuresis Sepsis Screening Reassessment Date: Aug 28, 2024 Supervising Co-signing Provider: ALLYSON Luong Aug 28, 2024 08:22
[2024-08-28] MEDS: furosemide 20 MG/2 ML vial IV SCH (10:00)
--- NOTE | 2024-08-28 15:54 | PROGRESS NOTE ---
Daily Progress Note Providers to CC Chief complaint, headaches ~ Central Line/PICC still needed: No Adkins-Non Protocol Adkins Indications Met/Not Met: F/C Indications Met Antibiotic Timeout Antibiotic Ordered?: Yes MRSA Education MRSA Education Provided to pt: Yes Subjective As above Objective Vital Signs Date Time Temp Pulse Resp B/P (MAP) Pulse Ox O2 Delivery O2 Flow Rate FiO2 08/28/24 15:00 99.1 75 14 121/78 (92) 96 Nasal Cannula 4.0 08/28/24 07:37 36 Vital signs, stable ,afebrile. Pulse Oximetry reflects adequate oxygenation on 4 L oxygen nasal cannula General: well developed, well nourished. Awake , alert, and oriented x4, resting comfortably in the bed, in no acute distress . Skin: Warm, dry, no pallor, no rash or petechiae. HEENT: Atraumatic, normocephalic, EOMI, anicteric sclera B; pink conjunctiva; PERRLA, normal oropharynx, moist oral and nasal mucosa. Tympanic membrane , nose , throat clear. Neck: Trachea midline. Supple, full range of motion, no JVD, bruit , hepatojugular reflex , lymphadenopathy or masses, or other lesions Cardiac: Regular rhythm, regular rate no murmurs, rubs, or gallops. Normal S1 and S2, no S3 noticed. PMI is normal. Respiratory: Postoperative incision clean dry intact dressing, Equal breath sounds bilaterally, no tachypnea; lungs clear to auscultation bilaterally, no wheezing ,rub or rales, or crackles. Chest wall is symmetric and without deformity. No signs of trauma. Chest wall is nontender. No signs of respiratory distress. Resonance is normal upon percussion bilaterally. Gastrointestinal: Abdomen symmetric, non-distended, soft, non-tender, normal bowel sounds x4 quadrant, normoactive, no hepatosplenomegaly , no masses , no bruit, no flank pain bilaterally. No voluntary guarding, rebound, or rigidity. No tenderness to percussion. No pulsatile masses. Equal femoral pulses. No Tyson's sign or McBurney point tenderness. Back; no CVA tenderness bilaterally, no deformities. Neck and back are without deformity as well. No tenderness noted on palpation of the spinous processes. Spinous processes are midline. Cervical, thoracic, and lumbar paraspinal muscles are not tender and are without spasm. : normal external genitalia, without lesions, swelling, masses or tenderness. Musculoskeletal: Extremities, normal range of motion, non-tender, muscle strength 5/5 x 4. Negative Homans signs bilaterally on lower extremity. Distal pulses full symmetrical, no clubbing, cyanosis , edema. Neurological: Speech is clear, alert, and oriented x 4. No motor or sensory deficit, deep tendon reflexes normal, cerebellar intact. Cranial nerves II-XII intact. Psych: Alert and or appropriate, normal affect. Vascular: Good distal pulses, which are equal x4; capillary refill less than 2 seconds. Lymphatic, no lymphadenopathy. Result Diagram: 08/28/2422408/28/24224 Coagulation Studies Laboratory Tests Test 08/25/24 14:50 08/25/24 18:26 08/25/24 19:10 Patient Sex (Coag) F Patient Height (Coag) 173cm Patient Weight (Coag) 83.0k KG Patient Blood Volume 4836 ML Pump Volume 1500 ML Total Blood Volume 6336 ML Projected Heparin Concentration 2.2 MG/KG Heparin [place] 112 Calculated Heparin Bolus 47348 UNITS Activated Coagulation Time Baseline 149 SEC (101-148) H Activated Coag Time 1.70 U/mL 323 SEC (193-297) H Activated Coag Time 2.84 U/mL 431 SEC (260-420) H Heparin Level (COAG) 0 MG/KG Calculated Heparin Req (Hep Assay) 49812 UNITS Calculated Protamine Req (Hep Assay 0 MG Activated Clotting Time 125 SEC (101-148) Prothrombin Time 12.4 SECONDS (9.0-12.0) H INR International Normalized Ratio 1.2 INR Activated Partial Thromboplast Time 27 SECONDS (22-32) Coagulation Comments Problem\Assessment\Plan Assessment/plan # Mitral valve regurgitation, severe # Acute on chronic diastolic heart failure, LVEF 60-65% -TTE form [place] shows: LVEF 60-65% with left ventricular wall thickness, mildly dilated atrium, mild stenosis of aortic valve with mild regurgitation, s evere mitral valve regurgitation, mild tricuspid regurgitation, normal right ventricle, small to moderate pericardial effusion without tamponade -metoprolol, supplemental oxygen; follow EKG, CBC, CMP -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 Soto) CTA carotid shows b/l carotid stenosis >70% postoperative day 2. Good recovery -status post MV replacement , postoperative day three., good recovery Common headaches, on analgesics p.o. IV Hypermagnesemia, IV magnesium discontinued, resolving # GIB # Normocytic anemia # Gastritis -PPI, h/h stable # HTN # NIDDM # COPD -aspirin, reports adverse reaction to statin on home Repatha, prn bronchodilators; metoprolol succ, hydralazine, isosorbide di -LDL 48, A1c 5.6% Diet: NPO after midnight DVT/VTE Prophylaxis: SCDs, hold chemical anticoagulant in view of recent GIB Code Status: Full Code Sepsis Screening Reassessment Date: Aug 28, 2024 Date of Service: Aug 28, 2024 Billing Provider: GLENIS DOCKERY MD Common Visit Codes: [id number] INP/OBS CARE(HIGH) GLENIS DOCKERY MD Aug 28, 2024 15:54
[2024-08-28] MEDS: JUVEN Smoothie Arginine/Glut./Ca2+Bmb (Juven 19.3pkt) 240ml cup PO SCH (19:00)
--- NOTE | 2024-08-28 19:32 | ELECTROCARDIOGRAPH REPORT ---
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 SCOTT Coffey Measurements Intervals [place] Rate: 86 P: 264 MS: 43 QRS: 31 QRSD: 150 T: 202 QT: 391 QTc: 468 Interpretive Statements Ventricular-paced rhythm No further analysis attempted due to paced rhythm Electronically Signed On 08-28-2024 19:33:[address] SCOTT Coffey Please click the below link to view image of tracing.
[2024-08-28] MEDS: furosemide 20 MG/2 ML vial IV ONE (20:34)
[2024-08-29] VITALS (24 sets, daily range): BP systolic 84–147; BP diastolic 50–90; PULSE 74–106; RESP 13–22; O2SAT 87–97
[2024-08-29 03:17] LABS: BASOPHILS % (AUTO) 0.2 % (0-1); EOSINOPHILS % (AUTO) 0.4 % (0-6); HEMATOCRIT 23.4 % (35.0-45.0); HEMOGLOBIN 8.1 g/dl (12.0-16.0); LYMPHOCYTES # (AUTO) 0.6 X10'3 (1.1-4.8); LYMPHOCYTES % (AUTO) 7.9 % (21-51); MEAN CORPUSCULAR HEMOGLOBIN 30.2 PG (27.0-31.0); MEAN CORPUSCULAR HGB CONC 34.4 g/dL (33.0-36.5); MEAN CORPUSCULAR VOLUME 87.7 FL (78-98); MEAN PLATELET VOLUME 7.5 FL (7.4-10.4); MONOCYTES # (AUTO) 0.7 X10'3 (0-0.9); MONOCYTES % (AUTO) 9.3 % (2-12); NEUTROPHILS # (AUTO) 6.2 X10'3 (1.8-7.7); NEUTROPHILS % (AUTO) 82.2 % (42-75); PLATELET COUNT 115 X10'3 (140-440); RED BLOOD COUNT 2.67 X10'6 (4.20-5.60); RED CELL DISTRIBUTION WIDTH 14.5 % (11.5-14.5); WHITE BLOOD COUNT 7.5 X10'3 (4.5-11.0)
[2024-08-29 03:29] LABS: ALANINE AMINOTRANSFERASE 23 U/L (12-78); ALBUMIN 2.8 G/DL (3.4-5.0); ALBUMIN/GLOBULIN RATIO 1.1 (1.1-1.5); ALKALINE PHOSPHATASE 38 IU/L (46-116); ANION GAP 2 (8-16); ASPARTATE AMINO TRANSFERASE 47 U/L (10-37); BILIRUBIN,TOTAL 0.7 MG/DL (0.1-1.0); BLOOD UREA NITROGEN 34 MG/DL (7-18); BUN/CREATININE RATIO 44.7 (10.0-20.0); CALCIUM 8.3 MG/DL (8.5-10.1); CHLORIDE 107 MMOL/L (99-107); CREATININE 0.76 MG/DL (0.40-0.90); GLUCOSE 122 MG/DL (70-104); MAGNESIUM 1.9 MG/DL (1.5-2.4); PHOSPHORUS 2.6 MG/DL (2.3-4.5); SODIUM 140 MMOL/L (135-145); TOTAL PROTEIN 5.4 G/DL (6.4-8.2); eCRCL 65 ML/MIN; eGFR 74 ML/MIN
[2024-08-29] MEDS: magnesium hydroxide 30ml (MOM) UD suspension PO PRN (04:31)
--- NOTE | 2024-08-29 09:19 | PROGRESS NOTE ---
Progress Note CV Providers to CC ~ Antibiotics Ordered?: No Subjective Subjective S/P MV replacement, LINA ligation POD # 4. She is up to the chair for breakfast. Says her nausea is slowly diminishing. Pacer in on a backup rate of 50 but tracking an atrial signal and v-pacing at 85. Underlying pacer is what appears to be a juctional rhythm in the 60's. She walked to the end of the [place]ald[place] and back yesterday. Objective Vitals Vital Signs Date Time Temp Pulse Resp B/P (MAP) Pulse Ox O2 Delivery O2 Flow Rate FiO2 08/29/24 08:01 85 08/29/24 08:00 98.6 14 130/59 (82) 91 Nasal Cannula 1.0 08/28/24 19:48 32 Lab Results: 08/29/24 0240 08/29/24 0240 Objective Lungs - mildly diminished at bases Heart - RRR, paced Abd/Extr - OK Incisions - CDI Coagulation Studies Laboratory Tests Test 08/25/24 14:50 08/25/24 18:26 08/25/24 19:10 Patient Sex (Coag) F Patient Height (Coag) 173cm Patient Weight (Coag) 83.0k KG Patient Blood Volume 4836 ML Pump Volume 1500 ML Total Blood Volume 6336 ML Projected Heparin Concentration 2.2 MG/KG Heparin [place] 112 Calculated Heparin Bolus 11279 UNITS Activated Coagulation Time Baseline 149 SEC (101-148) H Activated Coag Time 1.70 U/mL 323 SEC (193-297) H Activated Coag Time 2.84 U/mL 431 SEC (260-420) H Heparin Level (COAG) 0 MG/KG Calculated Heparin Req (Hep Assay) 71744 UNITS Calculated Protamine Req (Hep Assay 0 MG Activated Clotting Time 125 SEC (101-148) Prothrombin Time 12.4 SECONDS (9.0-12.0) H INR International Normalized Ratio 1.2 INR Activated Partial Thromboplast Time 27 SECONDS (22-32) Coagulation Comments Cardiac Rhythm: V Paced Problem\Assessment\Plan Additional Plan POD # 4 Remains on backup pacing. Rx for BM Sepsis Screening Reassessment Date: Aug 29, 2024 Supervising Co-signing Provider: ALLYSON Luong Aug 29, 2024 09:19
[2024-08-29] MEDS: magnesium citrate 296ml oral solution PO ONE (15:30)
--- NOTE | 2024-08-29 18:54 | PROGRESS NOTE ---
Daily Progress Note Providers to CC ~ feels better today better appetite, sleep chest tube removed Central Line/PICC still needed: No Adkins-Non Protocol Adkins Indications Met/Not Met: F/C Indications Not Met Antibiotic Timeout Antibiotic Ordered?: Yes MRSA Education MRSA Education Provided to pt: Yes Subjective As above Objective Vital Signs Date Time Temp Pulse Resp B/P (MAP) Pulse Ox O2 Delivery O2 Flow Rate FiO2 08/29/24 18:00 98.6 100 20 107/75 (86) 95 Nasal Cannula 1.0 08/28/24 19:48 32 Vital signs, stable ,afebrile. Pulse Oximetry reflects adequate oxygenation on 1 L oxygen nasal cannula General: well developed, well nourished. Awake , alert, and oriented x4, resting comfortably in the bed, in no acute distress . Skin: Warm, dry, no pallor, no rash or petechiae. HEENT: Atraumatic, normocephalic, EOMI, anicteric sclera B; pink conjunctiva; PERRLA, normal oropharynx, moist oral and nasal mucosa. Tympanic membrane , nose , throat clear. Neck: Trachea midline. Supple, full range of motion, no JVD, bruit , hepatojugular reflex , lymphadenopathy or masses, or other lesions Cardiac: Regular rhythm, regular rate no murmurs, rubs, or gallops. Normal S1 and S2, no S3 noticed. PMI is normal. Respiratory: Dressing clean dry intact, on anterior chest, Equal breath sounds bilaterally, no tachypnea; lungs clear to auscultation bilaterally, no wheezing ,rub or rales, or crackles. Chest wall is symmetric and without deformity. No signs of trauma. Chest wall is nontender. No signs of respiratory distress. Resonance is normal upon percussion bilaterally. Gastrointestinal: Abdomen symmetric, non-distended, soft, non-tender, normal bowel sounds x4 quadrant, normoactive, no hepatosplenomegaly , no masses , no bruit, no flank pain bilaterally. No voluntary guarding, rebound, or rigidity. No tenderness to percussion. No pulsatile masses. Equal femoral pulses. No Tyson's sign or McBurney point tenderness. Back; no CVA tenderness bilaterally, no deformities. Neck and back are without deformity as well. No tenderness noted on palpation of the spinous processes. Spinous processes are midline. Cervical, thoracic, and lumbar paraspinal muscles are not tender and are without spasm. Musculoskeletal: Extremities, normal range of motion, non-tender, muscle strength 5/5 x 4. Negative Homans signs bilaterally on lower extremity. Distal pulses full symmetrical, no clubbing, cyanosis , edema. Neurological: Speech is clear, alert, and oriented x 4. No motor or sensory deficit, deep tendon reflexes normal, cerebellar intact. Cranial nerves II-XII intact. Psych: Alert and or appropriate, normal affect. Vascular: Good distal pulses, which are equal x4; capillary refill less than 2 seconds. Lymphatic, no lymphadenopathy. Result Diagram: 08/29/24 0240 08/29/24 0240 Coagulation Studies Laboratory Tests Test 08/25/24 14:50 08/25/24 18:26 08/25/24 19:10 Patient Sex (Coag) F Patient Height (Coag) 173cm Patient Weight (Coag) 83.0k KG Patient Blood Volume 4836 ML Pump Volume 1500 ML Total Blood Volume 6336 ML Projected Heparin Concentration 2.2 MG/KG Heparin [place] 112 Calculated Heparin Bolus 19729 UNITS Activated Coagulation Time Baseline 149 SEC (101-148) H Activated Coag Time 1.70 U/mL 323 SEC (193-297) H Activated Coag Time 2.84 U/mL 431 SEC (260-420) H Heparin Level (COAG) 0 MG/KG Calculated Heparin Req (Hep Assay) 27617 UNITS Calculated Protamine Req (Hep Assay 0 MG Activated Clotting Time 125 SEC (101-148) Prothrombin Time 12.4 SECONDS (9.0-12.0) H INR International Normalized Ratio 1.2 INR Activated Partial Thromboplast Time 27 SECONDS (22-32) Coagulation Comments Problem\Assessment\Plan Assessment/plan # Mitral valve regurgitation, severe # Acute on chronic diastolic heart failure, LVEF 60-65% -TTE form [place] shows: LVEF 60-65% with left ventricular wall thickness, mildly dilated atrium, mild stenosis of aortic valve with mild regurgitation, s evere mitral valve regurgitation, mild tricuspid regurgitation, normal right ventricle, small to moderate pericardial effusion without tamponade -08/24: MV replacement scheduled tomorrow (Dr. Soto) CTA carotid shows b/l carotid stenosis >70% postoperative day 4. Good recovery -status post MV replacement , postoperative day three., good recovery Common headaches, on analgesics p.o. IV Hypermagnesemia, IV magnesium discontinued, resolving # GIB # Normocytic anemia # Gastritis -PPI, h/h stable # HTN # NIDDM # COPD -aspirin, reports adverse reaction to statin on home Repatha, prn bronchodilators; metoprolol succ, hydralazine, isosorbide di -LDL 48, A1c 5.6% Diet: NPO after midnight DVT/VTE Prophylaxis: SCDs, hold chemical anticoagulant in view of recent GIB Code Status: Full Code Sepsis Screening Reassessment Date: Aug 29, 2024 Date of Service: Aug 29, 2024 Billing Provider: GLENIS DOCKERY MD Common Visit Codes: [id number] INP/OBS CARE(HIGH) GLENIS DOCKERY MD Aug 29, 2024 18:54
[2024-08-30] VITALS (23 sets, daily range): BP systolic 99–152; BP diastolic 47–80; PULSE 66–99; RESP 12–22; O2SAT 91–98
[2024-08-30 03:51] LABS: BASOPHILS % (AUTO) 0.2 % (0-1); EOSINOPHILS # (AUTO) 0.1 X10'3 (0-0.9); EOSINOPHILS % (AUTO) 1.8 % (0-6); HEMATOCRIT 23.4 % (35.0-45.0); LYMPHOCYTES # (AUTO) 0.8 X10'3 (1.1-4.8); LYMPHOCYTES % (AUTO) 11.4 % (21-51); MEAN CORPUSCULAR HEMOGLOBIN 29.9 PG (27.0-31.0); MEAN CORPUSCULAR HGB CONC 34.1 g/dL (33.0-36.5); MEAN CORPUSCULAR VOLUME 87.8 FL (78-98); MEAN PLATELET VOLUME 7.9 FL (7.4-10.4); MONOCYTES # (AUTO) 0.8 X10'3 (0-0.9); MONOCYTES % (AUTO) 11.5 % (2-12); NEUTROPHILS # (AUTO) 5.3 X10'3 (1.8-7.7); NEUTROPHILS % (AUTO) 75.1 % (42-75); PLATELET COUNT 136 X10'3 (140-440); RED BLOOD COUNT 2.66 X10'6 (4.20-5.60); RED CELL DISTRIBUTION WIDTH 14.4 % (11.5-14.5); WHITE BLOOD COUNT 7.1 X10'3 (4.5-11.0)
[2024-08-30 04:01] LABS: ALANINE AMINOTRANSFERASE 50 U/L (12-78); ALBUMIN 2.7 G/DL (3.4-5.0); ALBUMIN/GLOBULIN RATIO 1.1 (1.1-1.5); ALKALINE PHOSPHATASE 44 IU/L (46-116); ANION GAP 1 (8-16); ASPARTATE AMINO TRANSFERASE 52 U/L (10-37); BILIRUBIN,TOTAL 0.6 MG/DL (0.1-1.0); BLOOD UREA NITROGEN 35 MG/DL (7-18); BUN/CREATININE RATIO 50.7 (10.0-20.0); CALCIUM 8.3 MG/DL (8.5-10.1); CHLORIDE 106 MMOL/L (99-107); CREATININE 0.69 MG/DL (0.40-0.90); GLUCOSE 107 MG/DL (70-104); POTASSIUM 4.3 MMOL/L (3.5-5.1); SODIUM 143 MMOL/L (135-145); TOTAL CARBON DIOXIDE 35.6 MMOL/L (24-32); TOTAL PROTEIN 5.2 G/DL (6.4-8.2); eCRCL 71 ML/MIN; eGFR 83 ML/MIN
--- NOTE | 2024-08-30 11:57 | PROGRESS NOTE ---
Progress Note CV Providers to CC ~ Progress Note: POD#5 MVR Central Line/PICC still needed: N\A Adkins Indications Met/Not Met: F/C Indications Not Met Antibiotics Ordered?: No Subjective Subjective Patient was feeling reasonably well today. No specific complaints. Objective Vitals Vital Signs Date Time Temp Pulse Resp B/P (MAP) Pulse Ox O2 Delivery O2 Flow Rate FiO2 08/30/24 08:15 70 08/30/24 06:00 18 118/80 (93) 92 Nasal Cannula 1.0 08/29/24 21:00 98.4 08/28/24 19:48 32 Lab Results: 08/30/24 0205 08/30/24 0205 Objective Lungs fairly clear with good aeration throughout. Cardiac exam regular rate and rhythm without murmur S3 or S4. No rubs. Sternal incision clean and dry. No peripheral edema. Coagulation Studies Laboratory Tests Test 08/25/24 14:50 08/25/24 18:26 08/25/24 19:10 Patient Sex (Coag) F Patient Height (Coag) 173cm Patient Weight (Coag) 83.0k KG Patient Blood Volume 4836 ML Pump Volume 1500 ML Total Blood Volume 6336 ML Projected Heparin Concentration 2.2 MG/KG Heparin [place] 112 Calculated Heparin Bolus 45434 UNITS Activated Coagulation Time Baseline 149 SEC (101-148) H Activated Coag Time 1.70 U/mL 323 SEC (193-297) H Activated Coag Time 2.84 U/mL 431 SEC (260-420) H Heparin Level (COAG) 0 MG/KG Calculated Heparin Req (Hep Assay) 60941 UNITS Calculated Protamine Req (Hep Assay 0 MG Activated Clotting Time 125 SEC (101-148) Prothrombin Time 12.4 SECONDS (9.0-12.0) H INR International Normalized Ratio 1.2 INR Activated Partial Thromboplast Time 27 SECONDS (22-32) Coagulation Comments Cardiac Rhythm: V Paced Problem\Assessment\Plan Additional Plan Doing fairly well following difficult mitral valve replacement. Echo yesterday showed only trivial perivalvular leak. Hemodynamics satisfactory with excellent urine output over the last 48 hours. Continue to mobilize and push incentive spirometry. She remains atrially sensed and ventricularly paced with underlying complete heart block. May need permanent pacemaker. We will discuss with Dr. Lawrence. AYALA BLEDSOE III, MD Aug 30, 2024 11:57
--- NOTE | 2024-08-30 17:56 | PROGRESS NOTE ---
Daily Progress Note Providers to CC Patient states is feeling better today, better appetite better sleep Central Line/PICC still needed: No Adkins-Non Protocol Adkins Indications Met/Not Met: F/C Indications Not Met Antibiotic Timeout Antibiotic Ordered?: No MRSA Education MRSA Education Provided to pt: No Subjective As above Objective Vital Signs Date Time Temp Pulse Resp B/P (MAP) Pulse Ox O2 Delivery O2 Flow Rate FiO2 08/30/24 08:15 70 08/30/24 06:00 18 118/80 (93) 92 Nasal Cannula 1.0 08/29/24 21:00 98.4 08/28/24 19:48 32 Vital signs, stable ,afebrile. Pulse Oximetry reflects adequate oxygenation on 1 L oxygen nasal cannula General: well developed, well nourished. Awake , alert, and oriented x4, resting comfortably in the bed, in no acute distress . Skin: Warm, dry, no pallor, no rash or petechiae. HEENT: Atraumatic, normocephalic, EOMI, anicteric sclera B; pink conjunctiva; PERRLA, normal oropharynx, moist oral and nasal mucosa. Tympanic membrane , nose , throat clear. Neck: Trachea midline. Supple, full range of motion, no JVD, bruit , hepatojugular reflex , lymphadenopathy or masses, or other lesions Cardiac: Regular rhythm, regular rate no murmurs, rubs, or gallops. Normal S1 and S2, no S3 noticed. PMI is normal. Respiratory: Equal breath sounds bilaterally, no tachypnea; lungs clear to auscultation bilaterally, no wheezing ,rub or rales, or crackles. Chest wall is symmetric and without deformity. No signs of trauma. Chest wall is nontender. No signs of respiratory distress. Resonance is normal upon percussion bilaterally. Gastrointestinal: Abdomen symmetric, non-distended, soft, non-tender, normal bowel sounds x4 quadrant, normoactive, no hepatosplenomegaly , no masses , no bruit, no flank pain bilaterally. No voluntary guarding, rebound, or rigidity. No tenderness to percussion. No pulsatile masses. Equal femoral pulses. No Tyson's sign or McBurney point tenderness. Back; no CVA tenderness bilaterally, no deformities. Neck and back are without deformity as well. No tenderness noted on palpation of the spinous processes. Spinous processes are midline. Cervical, thoracic, and lumbar paraspinal muscles are not tender and are without spasm. Locally, anterior chest dressing clean dry intact Musculoskeletal: Extremities, normal range of motion, non-tender, muscle strength 5/5 x 4. Negative Homans signs bilaterally on lower extremity. Distal pulses full symmetrical, no clubbing, cyanosis , edema. Neurological: Speech is clear, alert, and oriented x 4. No motor or sensory deficit, deep tendon reflexes normal, cerebellar intact. Cranial nerves II-XII intact. Psych: Alert and or appropriate, normal affect. Vascular: Good distal pulses, which are equal x4; capillary refill less than 2 seconds. Lymphatic, no lymphadenopathy. Result Diagram: 08/30/24 0205 08/30/24 020 Coagulation Studies Laboratory Tests Test 08/25/24 14:50 08/25/24 18:26 08/25/24 19:10 Patient Sex (Coag) F Patient Height (Coag) 173cm Patient Weight (Coag) 83.0k KG Patient Blood Volume 4836 ML Pump Volume 1500 ML Total Blood Volume 6336 ML Projected Heparin Concentration 2.2 MG/KG Heparin [place] 112 Calculated Heparin Bolus 45340 UNITS Activated Coagulation Time Baseline 149 SEC (101-148) H Activated Coag Time 1.70 U/mL 323 SEC (193-297) H Activated Coag Time 2.84 U/mL 431 SEC (260-420) H Heparin Level (COAG) 0 MG/KG Calculated Heparin Req (Hep Assay) 99132 UNITS Calculated Protamine Req (Hep Assay 0 MG Activated Clotting Time 125 SEC (101-148) Prothrombin Time 12.4 SECONDS (9.0-12.0) H INR International Normalized Ratio 1.2 INR Activated Partial Thromboplast Time 27 SECONDS (22-32) Coagulation Comments Problem\Assessment\Plan Assessment/plan # Mitral valve regurgitation, severe # Acute on chronic diastolic heart failure, LVEF 60-65% -TTE form [place] shows: LVEF 60-65% with left ventricular wall thickness, mildly dilated atrium, mild stenosis of aortic valve with mild regurgitation, s evere mitral valve regurgitation, mild tricuspid regurgitation, normal right ventricle, small to moderate pericardial effusion without tamponade (Dr. Soto) CTA carotid shows b/l carotid stenosis >70% postoperative day 5. Good recovery -status post MV replacement Common headaches, on analgesics p.o. IV Hypermagnesemia, IV magnesium discontinued, resolving # GIB # Normocytic anemia # Gastritis -PPI, h/h stable # HTN # NIDDM # COPD -aspirin, reports adverse reaction to statin on home Repatha, prn bronchodilators; metoprolol succ, hydralazine, isosorbide di -LDL 48, A1c 5.6% DVT/VTE Prophylaxis: SCDs, hold chemical anticoagulant in view of recent GIB Code Status: Full Code Sepsis Screening Reassessment Date: Aug 30, 2024 Date of Service: Aug 30, 2024 Billing Provider: GLENIS DOCKERY MD Common Visit Codes: [id number] INP/OBS CARE(HIGH) GLENIS DOCKERY MD Aug 30, 2024 17:56
--- NOTE | 2024-08-30 19:45 | CARDIOLOGY REPORT ---
APPROVED REPORT EXAM: Limited 2D, Doppler, and color-flow Echocardiogram. Patient Location: [facility] Blood Pressure: 111/53 mmHg Heart Rate: 84 bpm Rhythm: NSR Indications Limited to evalulate Mitral valve replacement 25 mm [employer] MVR 08/25/24 [place] is Corrie Guillen MD Previous echo 08/25/24 75-80% ; 25 mm MVR grad 16/8 pk v 2.06 Mitral Valve MV Peak Gr. 27 mmHg MV Mean Gr. 14 mmHg MV [id number] cm/sMV HTlyl124.9 cm/s MV VTI57.4 cm Tricuspid Valve TR P. Velocity 302 cm/s RAP ESTIMATE 10 mmHg TR Peak Gr. 36 mmHg RVSP 46 mmHg LEFT VENTRICLE LV appears normal in size and thickness. Overall systolic function appears hyperdynamic. LVEF is 75-8 0%. RIGHT VENTRICLE RV appears normal in size and function. RVSP is estimated at 46 mmHG. MITRAL VALVE 25 mm [employer] MVR appears well seated. Valve appears to be canted towards the septum. Peak/me an gradient of 27/14 mmHG with a peak velocity of 2.58 m/s. Multiple trivial leaks noted. TRICUSPID VALVE The tricuspid valve is normal in structure. Trace tricuspid regurgitation. PERICARDIUM Trivial pericardial effusion with no evidence of hemodynamic compromise. Other Information Study Quality: Fair Conclusion LV appears normal in size and thickness. Overall systolic function appears hyperdynamic. LVEF is 75-8 0%. RV appears normal in size and function. RVSP is estimated at 46 mmHG. 25 mm [employer] MVR appears well seated. Valve appears to be canted towards the septum. Peak/me an gradient of 27/14 mmHG with a peak velocity of 2.58 m/s. Multiple trivial leaks noted. The tricuspid valve is normal in structure. Trace tricuspid regurgitation. Trivial pericardial effusion with no evidence of hemodynamic compromise.
[2024-08-31] VITALS (25 sets, daily range): BP systolic 113–155; BP diastolic 45–87; PULSE 70–86; RESP 11–24; O2SAT 93–98
[2024-08-31 01:59] LABS: BASOPHILS % (AUTO) 0.3 % (0-1); EOSINOPHILS # (AUTO) 0.1 X10'3 (0-0.9); EOSINOPHILS % (AUTO) 1.7 % (0-6); HEMATOCRIT 23.8 % (35.0-45.0); HEMOGLOBIN 8.1 g/dl (12.0-16.0); LYMPHOCYTES # (AUTO) 1.1 X10'3 (1.1-4.8); LYMPHOCYTES % (AUTO) 13.2 % (21-51); MEAN CORPUSCULAR HEMOGLOBIN 29.7 PG (27.0-31.0); MEAN CORPUSCULAR VOLUME 87.3 FL (78-98); MEAN PLATELET VOLUME 7.5 FL (7.4-10.4); MONOCYTES # (AUTO) 0.9 X10'3 (0-0.9); MONOCYTES % (AUTO) 10.3 % (2-12); NEUTROPHILS # (AUTO) 6.4 X10'3 (1.8-7.7); NEUTROPHILS % (AUTO) 74.5 % (42-75); PLATELET COUNT 152 X10'3 (140-440); RED BLOOD COUNT 2.73 X10'6 (4.20-5.60); RED CELL DISTRIBUTION WIDTH 14.5 % (11.5-14.5); WHITE BLOOD COUNT 8.6 X10'3 (4.5-11.0)
[2024-08-31 02:21] LABS: ALANINE AMINOTRANSFERASE 46 U/L (12-78); ALBUMIN 2.5 G/DL (3.4-5.0); ALBUMIN/GLOBULIN RATIO 0.9 (1.1-1.5); ALKALINE PHOSPHATASE 42 IU/L (46-116); ANION GAP 4 (8-16); ASPARTATE AMINO TRANSFERASE 31 U/L (10-37); BILIRUBIN,TOTAL 0.6 MG/DL (0.1-1.0); BLOOD UREA NITROGEN 37 MG/DL (7-18); BUN/CREATININE RATIO 50.7 (10.0-20.0); CALCIUM 8.6 MG/DL (8.5-10.1); CHLORIDE 105 MMOL/L (99-107); CREATININE 0.73 MG/DL (0.40-0.90); GLUCOSE 122 MG/DL (70-104); POTASSIUM 4.2 MMOL/L (3.5-5.1); SODIUM 143 MMOL/L (135-145); TOTAL CARBON DIOXIDE 34.1 MMOL/L (24-32); TOTAL PROTEIN 5.3 G/DL (6.4-8.2); eCRCL 67 ML/MIN; eGFR 78 ML/MIN
[2024-08-31] MEDS: potassium Cl 20 mEq SR tablet PO PRN (06:07)
[2024-08-31 07:19] LABS: MAGNESIUM 2.1 MG/DL (1.5-2.4); PHOSPHORUS 2.7 MG/DL (2.3-4.5)
[2024-08-31] MEDS: magnesium sulf-water 2g/50mL 50 ML IV PRN (07:51)
--- NOTE | 2024-08-31 09:27 | PROGRESS NOTE ---
Progress Note CV Providers to CC ~ Antibiotics Ordered?: No Subjective Subjective S/P MV replacement POD # 6. She is alert, up to chair for breakfast. Remains troubled by nausea. She continues on backup pacing. She appears to be in atrial flutter underlying pacer with ventricular rate in the 80's. Objective Vitals Vital Signs Date Time Temp Pulse Resp B/P (MAP) Pulse Ox O2 Delivery O2 Flow Rate FiO2 08/31/24 09:00 79 17 117/45 (69) 93 Room Air 08/31/24 07:00 97.3 1.0 08/28/24 19:48 32 Lab Results: 08/31/24 0150 08/31/24 0150 Objective Lungs - mildly diminished at bases Heart - RRR, paced Abd./Extr - OK Incisions - CDI Coagulation Studies Laboratory Tests Test 08/25/24 14:50 08/25/24 18:26 08/25/24 19:10 Patient Sex (Coag) F Patient Height (Coag) 173cm Patient Weight (Coag) 83.0k KG Patient Blood Volume 4836 ML Pump Volume 1500 ML Total Blood Volume 6336 ML Projected Heparin Concentration 2.2 MG/KG Heparin [place] 112 Calculated Heparin Bolus 22168 UNITS Activated Coagulation Time Baseline 149 SEC (101-148) H Activated Coag Time 1.70 U/mL 323 SEC (193-297) H Activated Coag Time 2.84 U/mL 431 SEC (260-420) H Heparin Level (COAG) 0 MG/KG Calculated Heparin Req (Hep Assay) 35589 UNITS Calculated Protamine Req (Hep Assay 0 MG Activated Clotting Time 125 SEC (101-148) Prothrombin Time 12.4 SECONDS (9.0-12.0) H INR International Normalized Ratio 1.2 INR Activated Partial Thromboplast Time 27 SECONDS (22-32) Coagulation Comments Cardiac Rhythm: Atrial Flutter, V Paced Problem\Assessment\Plan Additional Plan POD # 6 Remains troubled by nausea. Dr[address] Lawrence considering PPM. Continue rehab/ ambulation. She prefers home vs. rehab. Sepsis Screening Reassessment Date: Aug 31, 2024 Supervising Co-signing Provider: ALLYSON Luong Aug 31, 2024 09:27
[2024-09-01] VITALS (32 sets, daily range): BP systolic 114–156; BP diastolic 64–93; PULSE 76–110; RESP 11–22; TEMP 98.6; O2SAT 92–98
[2024-09-01 00:55] LABS: BASOPHILS % (AUTO) 0.2 % (0-1); EOSINOPHILS # (AUTO) 0.2 X10'3 (0-0.9); EOSINOPHILS % (AUTO) 1.9 % (0-6); HEMATOCRIT 24.9 % (35.0-45.0); HEMOGLOBIN 8.5 g/dl (12.0-16.0); LYMPHOCYTES # (AUTO) 1.3 X10'3 (1.1-4.8); LYMPHOCYTES % (AUTO) 13.6 % (21-51); MEAN CORPUSCULAR HEMOGLOBIN 29.9 PG (27.0-31.0); MEAN CORPUSCULAR HGB CONC 34.2 g/dL (33.0-36.5); MEAN CORPUSCULAR VOLUME 87.4 FL (78-98); MEAN PLATELET VOLUME 7.4 FL (7.4-10.4); MONOCYTES # (AUTO) 0.8 X10'3 (0-0.9); NEUTROPHILS % (AUTO) 75.3 % (42-75); PLATELET COUNT 190 X10'3 (140-440); RED BLOOD COUNT 2.85 X10'6 (4.20-5.60); RED CELL DISTRIBUTION WIDTH 14.6 % (11.5-14.5); WHITE BLOOD COUNT 9.4 X10'3 (4.5-11.0)
[2024-09-01 01:12] LABS: ALANINE AMINOTRANSFERASE 52 U/L (12-78); ALBUMIN 2.7 G/DL (3.4-5.0); ALBUMIN/GLOBULIN RATIO 0.9 (1.1-1.5); ALKALINE PHOSPHATASE 45 IU/L (46-116); ANION GAP 5 (8-16); ASPARTATE AMINO TRANSFERASE 28 U/L (10-37); BILIRUBIN,TOTAL 0.6 MG/DL (0.1-1.0); BLOOD UREA NITROGEN 36 MG/DL (7-18); BUN/CREATININE RATIO 51.4 (10.0-20.0); CALCIUM 8.9 MG/DL (8.5-10.1); CHLORIDE 104 MMOL/L (99-107); GLUCOSE 130 MG/DL (70-104); MAGNESIUM 2.1 MG/DL (1.5-2.4); PHOSPHORUS 3.5 MG/DL (2.3-4.5); POTASSIUM 4.3 MMOL/L (3.5-5.1); SODIUM 141 MMOL/L (135-145); TOTAL CARBON DIOXIDE 32.5 MMOL/L (24-32); TOTAL PROTEIN 5.6 G/DL (6.4-8.2); eCRCL 70 ML/MIN; eGFR 82 ML/MIN
[2024-09-01] MEDS: magnesium Cl slow-release 64mg tablet PO PRN (01:23)
[2024-09-01] MEDS: amiodarone 150mg/dext, iso-os 100 ML IV ONE (01:27)
[2024-09-01] MEDS: amiodarone/D5 360MG/200ML BAG 200 ML IV SCH (01:27)
--- NOTE | 2024-09-01 08:05 | PROGRESS NOTE ---
Progress Note CV Providers to CC ~ Antibiotics Ordered?: No Subjective Subjective S/P MVR POD # 7. Started on IV amiod last night for A. lily. Rate recorded at 110. Currently pacer is disconnected. HR 80's. She did not rest last night and feels weak today. Objective Vitals Vital Signs Date Time Temp Pulse Resp B/P (MAP) Pulse Ox O2 Delivery O2 Flow Rate FiO2 09/01/24 07:00 97.9 96 19 145/77 (99) 94 Bi-pap/CPAP 0.0 21 Lab Results: 09/01/24 0040 09/01/24 0040 Objective Lungs - a bit diminished L base Heart - Irreg, A.fib/ junctional Abd/Extr - OK Incisions - CDI Coagulation Studies Laboratory Tests Test 08/25/24 14:50 08/25/24 18:26 08/25/24 19:10 Patient Sex (Coag) F Patient Height (Coag) 173cm Patient Weight (Coag) 83.0k KG Patient Blood Volume 4836 ML Pump Volume 1500 ML Total Blood Volume 6336 ML Projected Heparin Concentration 2.2 MG/KG Heparin [place] 112 Calculated Heparin Bolus 97131 UNITS Activated Coagulation Time Baseline 149 SEC (101-148) H Activated Coag Time 1.70 U/mL 323 SEC (193-297) H Activated Coag Time 2.84 U/mL 431 SEC (260-420) H Heparin Level (COAG) 0 MG/KG Calculated Heparin Req (Hep Assay) 81205 UNITS Calculated Protamine Req (Hep Assay 0 MG Activated Clotting Time 125 SEC (101-148) Prothrombin Time 12.4 SECONDS (9.0-12.0) H INR International Normalized Ratio 1.2 INR Activated Partial Thromboplast Time 27 SECONDS (22-32) Coagulation Comments Cardiac Rhythm: Atrial Fibrillation Problem\Assessment\Plan Additional Plan POD # 7 Now on IV Amiod for A. fib Awaiting input from Dr. Lawrence. Continue rehab. Sepsis Screening Reassessment Date: Sep 01, 2024 Supervising Co-signing Provider: ALLYSON Luong Sep 01, 2024 08:05
--- NOTE | 2024-09-01 09:36 | RADIOLOGY REPORT ---
EXAM: DI CHEST,SINGLE VIEW Indication: crackle lung sounds bilateral bases Technique: Single frontal view of the chest was obtained Comparison: DI CHEST,SINGLE VIEW on DOS: 08/28/24, DI CHEST,SINGLE VIEW on DOS: 08/27/24, DI CHEST,SING LE VIEW on DOS: 08/26/24, DI CHEST,SINGLE VIEW on DOS: 08/25/24 FINDINGS: Lines and Tubes: Right internal jugular central venous catheter tip projects over superior vena cava Lungs: Pulmonary vascular congestion. Pleura: Small bilateral pleural effusions No pneumothorax. Cardiomediastinal contours: Cardiomegaly. Atherosclerotic vascular calcifications of the thoracic ao rta are noted. Bones: No acute osseous abnormality. IMPRESSION: Cardiomegaly with small bilateral pleural effusions and pulmonary vascular congestion.
[2024-09-01] MEDS: midazolam 1 mg/ML 2ml injection IV ONE (13:00)
[2024-09-01] MEDS: fentaNYL/PF 50MCG/1 ML 2ML syringe IV ONE (13:00)
[2024-09-01] MEDS: fentaNYL/PF 50MCG/1 ML 2ML syringe ONE (13:00)
[2024-09-01] MEDS: MIDAZolam 1mg/ml 10ml vial IV ONE (13:00)
[2024-09-01] MEDS: midazolam 1 mg/ML 2ml injection ONE (13:00)
--- NOTE | 2024-09-01 19:10 | PROGRESS NOTE ---
Progress Note Cardiology Providers to CC ~ Subjective Subjective patient has no recent complaints of chest wall soreness Objective Vitals She developed atrial fibrillation recently and had transient heart block with beta jaycee usage. She's been placed on an amiodarone infusion. Transesophageal echocardiography demonstrated that the mitral bioprosthetic valve was functioning superbly. There was no significant perivalvular leak. The left atrial appendage appeared to be almost completely occluded with a small residual passage but no flow through it. She was successfully cardioverted to sinus rhythm but reverted back to AF within approximately 5 seconds. Result Diagram: 09/01/24 0040 09/01/24 0040 Coagulation Studies Laboratory Tests Test 08/25/24 14:50 08/25/24 18:26 08/25/24 19:10 Patient Sex (Coag) F Patient Height (Coag) 173cm Patient Weight (Coag) 83.0k KG Patient Blood Volume 4836 ML Pump Volume 1500 ML Total Blood Volume 6336 ML Projected Heparin Concentration 2.2 MG/KG Heparin [place] 112 Calculated Heparin Bolus 27260 UNITS Activated Coagulation Time Baseline 149 SEC (101-148) H Activated Coag Time 1.70 U/mL 323 SEC (193-297) H Activated Coag Time 2.84 U/mL 431 SEC (260-420) H Heparin Level (COAG) 0 MG/KG Calculated Heparin Req (Hep Assay) 49247 UNITS Calculated Protamine Req (Hep Assay 0 MG Activated Clotting Time 125 SEC (101-148) Prothrombin Time 12.4 SECONDS (9.0-12.0) H INR International Normalized Ratio 1.2 INR Activated Partial Thromboplast Time 27 SECONDS (22-32) Coagulation Comments Problem\Assessment\Plan Additional Plan She should continue her amiodarone infusion and have a second attempt at cardioversion on 09/03/24 ZEENAT DAILEY DO Sep 01, 2024 19:10
--- NOTE | 2024-09-01 19:23 | CARDIOLOGY REPORT ---
APPROVED REPORT EXAM: Focused, limited transesophageal echocardiogram with color flow Doppler pre-cardioversion cardi oversion. Patient Location: 2011 Blood Pressure: 150 / 91 mmHg Heart Rate: 85 bpm Rhythm: ATRIAL FIBRILLATION Indications EVALUATE LA APPENDAGE PRE-CARDIOVERSION 25 MM KNUTSON EPIC BIO MVR 08/25/24 ASHLY PROBE PASSED BY: Sara DAILEY DO Aeronautical Engineer: aSra DAILEY DO / CAlejandro SURGEON: Petra BLEDSOE MD Previous echo: 08/29/24 [facility] EF: 78%; nlLV-hyperFX; nlRV; RVSP46; nlMVR-?ANT CANT?; PKV: 2.58 ; GRAD: ; multi TR - PVL LEFT VENTRICLE Normal LV size and function. Mild concentric hypertrophy. LVEF is 70%. RIGHT VENTRICLE RV is normal size and function. ATRIA Left atrium appears ? moderately dilated. Left atrial appendage stump is visualized in multiple plane s and appears to have been ligated. The LINA opening is severely restricted from the ligation. There i s a small, visible passage but no evidence of flow through it. There was no thrombus distal (i.e., fu rther intotthe LINA beyond the ligated area AORTIC VALVE Tri[place]let AV appears mildly sclerotic without stenosis. Trace insufficiency. MITRAL VALVE 25 MM KNUTSON EPIC BIO MVR appears anteriorly seated with normal function (unchanged by ASHLY form initi al replacement). Trace, physiologic-appearing central leak MVA is not quantified due to focused exam. Recommend clinical correltation if indicated. PERICARDIUM Normal pericardium. No effusion.
[2024-09-01] MEDS: apixaban 5mg tablet PO SCH (20:30)
[2024-09-02] VITALS (18 sets, daily range): BP systolic 94–157; BP diastolic 60–105; PULSE 59–97; RESP 16–23; TEMP 96.9–98.3; O2SAT 92–96
[2024-09-02 03:39] LABS: BASOPHILS % (AUTO) 0.3 % (0-1); EOSINOPHILS # (AUTO) 0.2 X10'3 (0-0.9); EOSINOPHILS % (AUTO) 1.9 % (0-6); HEMATOCRIT 26.6 % (35.0-45.0); LYMPHOCYTES # (AUTO) 1.3 X10'3 (1.1-4.8); LYMPHOCYTES % (AUTO) 15.3 % (21-51); MEAN CORPUSCULAR HEMOGLOBIN 29.8 PG (27.0-31.0); MEAN CORPUSCULAR HGB CONC 33.8 g/dL (33.0-36.5); MEAN CORPUSCULAR VOLUME 88.1 FL (78-98); MEAN PLATELET VOLUME 7.7 FL (7.4-10.4); MONOCYTES # (AUTO) 0.9 X10'3 (0-0.9); MONOCYTES % (AUTO) 10.9 % (2-12); NEUTROPHILS # (AUTO) 6.2 X10'3 (1.8-7.7); NEUTROPHILS % (AUTO) 71.6 % (42-75); PLATELET COUNT 254 X10'3 (140-440); RED BLOOD COUNT 3.02 X10'6 (4.20-5.60); RED CELL DISTRIBUTION WIDTH 14.8 % (11.5-14.5); WHITE BLOOD COUNT 8.7 X10'3 (4.5-11.0)
--- NOTE | 2024-09-02 03:41 | GI LAB REPORT ---
DATE OF PROCEDURE: 09/01/2024 DICTATING PHYSICIAN: ZEENAT DAILEY DO DC CARDIOVERSION PREPROCEDURE DIAGNOSIS: Atrial fibrillation. POSTPROCEDURE DIAGNOSIS: Atrial fibrillation. DESCRIPTION OF PROCEDURE: The patient was sedated with fentanyl and Versed. She was then given one 200 joules synchronized shock, resulting in conversion to sinus rhythm; however, within about 5 seconds, she reverted to atrial fibrillation. PLAN: Ongoing medical therapy with intravenous amiodarone with repeat attempt at cardioversion in approximately 48 hours. ZEENAT DAILEY DO TID: [id number] RECEIPT: [id number] COREY/RAUL/ABE
[2024-09-02 03:49] LABS: ALANINE AMINOTRANSFERASE 56 U/L (12-78); ALBUMIN 2.8 G/DL (3.4-5.0); ALBUMIN/GLOBULIN RATIO 0.9 (1.1-1.5); ALKALINE PHOSPHATASE 53 IU/L (46-116); ANION GAP 6 (8-16); ASPARTATE AMINO TRANSFERASE 33 U/L (10-37); BILIRUBIN,TOTAL 0.7 MG/DL (0.1-1.0); BLOOD UREA NITROGEN 29 MG/DL (7-18); BUN/CREATININE RATIO 36.7 (10.0-20.0); CHLORIDE 104 MMOL/L (99-107); CREATININE 0.79 MG/DL (0.40-0.90); GLUCOSE 115 MG/DL (70-104); POTASSIUM 4.4 MMOL/L (3.5-5.1); SODIUM 140 MMOL/L (135-145); TOTAL CARBON DIOXIDE 30.1 MMOL/L (24-32); eCRCL 62 ML/MIN; eGFR 71 ML/MIN
--- NOTE | 2024-09-02 09:12 | PROGRESS NOTE ---
Progress Note CV Providers to CC ~ Antibiotics Ordered?: No Subjective Subjective S/P MVR POD # 8. Cardioversion was performed yesterday, but pt reverted back to A. fib. Remains in A. fib at this time. She continues on IV Amiod. There are plans to cardiovert again tomorrow. Objective Vitals Vital Signs Date Time Temp Pulse Resp B/P (MAP) Pulse Ox O2 Delivery O2 Flow Rate FiO2 09/02/24 06:00 78 09/02/24 06:00 97.3 16 141/90 (107) 95 Room Air 09/02/24 02:00 0.0 09/01/24 13:17 32 Lab Results: 09/02/24 0320 09/02/24 0320 Objective Lungs - clear Heart - Irreg, irreg. Abd/Extr - OK Incisions - CDI Coagulation Studies Laboratory Tests Test 08/25/24 14:50 08/25/24 18:26 08/25/24 19:10 Patient Sex (Coag) F Patient Height (Coag) 173cm Patient Weight (Coag) 83.0k KG Patient Blood Volume 4836 ML Pump Volume 1500 ML Total Blood Volume 6336 ML Projected Heparin Concentration 2.2 MG/KG Heparin [place] 112 Calculated Heparin Bolus 10364 UNITS Activated Coagulation Time Baseline 149 SEC (101-148) H Activated Coag Time 1.70 U/mL 323 SEC (193-297) H Activated Coag Time 2.84 U/mL 431 SEC (260-420) H Heparin Level (COAG) 0 MG/KG Calculated Heparin Req (Hep Assay) 85059 UNITS Calculated Protamine Req (Hep Assay 0 MG Activated Clotting Time 125 SEC (101-148) Prothrombin Time 12.4 SECONDS (9.0-12.0) H INR International Normalized Ratio 1.2 INR Activated Partial Thromboplast Time 27 SECONDS (22-32) Coagulation Comments Cardiac Rhythm: Atrial Flutter Problem\Assessment\Plan Additional Plan POD # 8 Remains in A. fib. Eliquis started yesterday. Cardioversion planned again for tomorrow. Pt. considering rehab vs home. Will ask DC planning to speak with her. Supervising MD Co-signing Provider: ALLYSON Loung Sep 02, 2024 09:11
[2024-09-02] MEDS ORDERED: ipratropium/albuterol 3ml nebule NEB PRN (16:10)
[2024-09-03] VITALS (20 sets, daily range): BP systolic 99–166; BP diastolic 58–92; PULSE 66–101; RESP 12–26; TEMP 97–98.5; O2SAT 91–98
--- NOTE | 2024-09-03 08:46 | PROGRESS NOTE ---
Progress Note CV Providers to CC ~ Antibiotics Ordered?: No Subjective Subjective S/P MVR, LINA ligation POD # 9. Remains in A. fib/ Flutter. She feels better typically in the mornings and then gets tired and fatigued and nauseated by afternoon. Did not see PT yesterday. She is currently NPO and says Dr. Lawrence is planning cardioversion at 10AM today. Continues on IV Amiod. Objective Vitals Vital Signs Date Time Temp Pulse Resp B/P (MAP) Pulse Ox O2 Delivery O2 Flow Rate FiO2 09/03/24 07:56 66 18 96 Room Air* 0 21 09/03/24 06:00 97.6 148/80 (102) Lab Results: 09/02/24 0320 09/02/24 0320 Objective Lungs - fairly clear Heart - Irreg, irreg. A. fib/ flutter Abd/Extr - OK Incision - CDI Coagulation Studies Laboratory Tests Test 08/25/24 14:50 08/25/24 18:26 08/25/24 19:10 Patient Sex (Coag) F Patient Height (Coag) 173cm Patient Weight (Coag) 83.0k KG Patient Blood Volume 4836 ML Pump Volume 1500 ML Total Blood Volume 6336 ML Projected Heparin Concentration 2.2 MG/KG Heparin [place] 112 Calculated Heparin Bolus 20436 UNITS Activated Coagulation Time Baseline 149 SEC (101-148) H Activated Coag Time 1.70 U/mL 323 SEC (193-297) H Activated Coag Time 2.84 U/mL 431 SEC (260-420) H Heparin Level (COAG) 0 MG/KG Calculated Heparin Req (Hep Assay) 85969 UNITS Calculated Protamine Req (Hep Assay 0 MG Activated Clotting Time 125 SEC (101-148) Prothrombin Time 12.4 SECONDS (9.0-12.0) H INR International Normalized Ratio 1.2 INR Activated Partial Thromboplast Time 27 SECONDS (22-32) Coagulation Comments Cardiac Rhythm: Atrial Flutter Problem\Assessment\Plan Additional Plan POD # 9 A. fib/ flutter. Continues on IV amiod. CL still in place. DC CL after cardioversion today. Planning for rehab transfer. Supervising Co-signing Provider: ALLYSON Luong Sep 03, 2024 08:46
[2024-09-03] MEDS: MIDAZolam 1mg/ml 10ml vial IV ONE (10:07)
[2024-09-03] MEDS: fentaNYL/PF 50MCG/1 ML 2ML syringe IV ONE (10:08)
[2024-09-04] VITALS (7 sets, daily range): BP systolic 117–151; BP diastolic 63–96; PULSE 72–78; RESP 16–24; TEMP 96.7–98.1; O2SAT 90–97
--- NOTE | 2024-09-04 08:07 | PROGRESS NOTE ---
Progress Note CV Providers to CC ~ Antibiotics Ordered?: No Subjective Subjective S/P MVR, LINA ligation POD # 10. Cardioverted again yesterday. Remained in a regular rhythm for several hours. Back in rate controlled A. flutter now. IJ out. Continued on the Amiod gtt overnight. Planning for rehab today. She is anxious that she not be kept in rehab beyond what she decides. Objective Vitals Vital Signs Date Time Temp Pulse Resp B/P (MAP) Pulse Ox O2 Delivery O2 Flow Rate FiO2 09/04/24 02:00 96.7 74 16 141/78 (99) 93 Bi-pap/CPAP 09/03/24 23:34 21 09/03/24 10:29 2.0 Lab Results: 09/02/24 0320 09/02/24 0320 Objective Lungs - fairly clear Heart - Irreg, irreg. A. flutter Abd/extr - OK Incisions - CDI Coagulation Studies Laboratory Tests Test 08/25/24 14:50 08/25/24 18:26 08/25/24 19:10 Patient Sex (Coag) F Patient Height (Coag) 173cm Patient Weight (Coag) 83.0k KG Patient Blood Volume 4836 ML Pump Volume 1500 ML Total Blood Volume 6336 ML Projected Heparin Concentration 2.2 MG/KG Heparin [place] 112 Calculated Heparin Bolus 87118 UNITS Activated Coagulation Time Baseline 149 SEC (101-148) H Activated Coag Time 1.70 U/mL 323 SEC (193-297) H Activated Coag Time 2.84 U/mL 431 SEC (260-420) H Heparin Level (COAG) 0 MG/KG Calculated Heparin Req (Hep Assay) 43171 UNITS Calculated Protamine Req (Hep Assay 0 MG Activated Clotting Time 125 SEC (101-148) Prothrombin Time 12.4 SECONDS (9.0-12.0) H INR International Normalized Ratio 1.2 INR Activated Partial Thromboplast Time 27 SECONDS (22-32) Coagulation Comments Cardiac Rhythm: Atrial Fibrillation Problem\Assessment\Plan Additional Plan POD # 10 PW's DC'd Change Amiod to PO To rehab today. Sepsis Screening Reassessment Date: September 04, 2024 Supervising Co-signing Provider: ALLYSON Luong September 04, 2024 08:07
[2024-09-04] MEDS: amiodarone 200mg tablet PO SCH (08:38)
--- NOTE | 2024-09-04 18:58 | DISCHARGE SUMMARY ---
DATE OF DISCHARGE: 09/04/2024 DICTATING PHYSICIAN: Mayito Locke ADMITTING PHYSICIAN: Zeenat Dailey DO SOFTWARE TOOLS BUILD ENGINEER: Tim Soto MD PREOPERATIVE DIAGNOSES: Severe mitral insufficiency, history of congestive heart failure, hypertension, and history of gout, also hyperlipidemia. DISCHARGE DIAGNOSES: Severe mitral insufficiency, history of congestive heart failure, hypertension, and history of gout, also hyperlipidemia, status post mitral valve replacement along with left atrial appendage ligation. Postoperatively, she had heart block followed by atrial flutter and fibrillation. SUMMARY: This is a pleasant 73-year-old female patient with a known history of mitral insufficiency. She had previous admissions for CHF in the past several months. Most recently, she was seen at the emergency department at [place]. She was found to have congestive heart failure with increasing shortness of breath, also noted to have melanotic stools. She had a hemoglobin of 7.1, was transfused with 2 units of blood. She underwent EGD, which reportedly showed nothing specific. She was transferred here for cardiac catheterization, which demonstrated no hemodynamically significant lesions. Based on the above findings, the patient was recommended to undergo mitral valve replacement. She had a significant amount of mitral annular calcification and therefore it was felt that repair would be unlikely to be able to be accomplished. The patient was taken to the operating room on 08/25/2024. Name of the operation is mitral valve replacement with a 25 mm Epic porcine mitral valve prosthesis along with left atrial appendage ligation and transesophageal echocardiography. Following the operation, the patient was taken to the CICU in stable condition where she remained intubated until midday. She awakened and followed commands. Neurologically, she was intact. Initially, H and H was 10 and 28.8, creatinine of 1.1. Cardiac index was 2.3 on no inotropes. She continued on pacing with underlying junctional rate in the 50s for several days postoperatively. Chest drains were discontinued on postop day #3. Diures[address] Dailey evaluated the patient and by the time he saw her, she was in atrial flutter. Cardioversion attempt was made; however, she did not stay in sinus more than a few seconds. Cardioversion was repeated again yesterday and she remained in a regular rhythm for several hours and then reverted back to the atrial flutter. At this point in time, it is felt that she will benefit from continuation on oral amiodarone along with Eliquis and the arrangements were made to transfer her to a rehab facility today. DISCHARGE PROGRAM: Followup appointment with cardiac surgeon's office in 2 weeks, with Cardiology in 4 weeks and with her primary physician in 6 weeks. ACTIVITY: Physical therapy and occupational therapy. She is to observe sternal precautions. She is to shower daily. Of note, her pacer wires were removed this morning. DIET: She will be on a regular diet, transitioning to a heart-healthy diet as tolerated. MEDICATIONS: Will include amiodarone 200 mg p.o. b.i.d., albuterol/ipratropium inhalation nebulizer every 4 hours p.r.n., Eliquis 5 mg p.o. b.i.d., aspirin 81 mg p.o. daily, Senna S tablet 1 p.o. b.i.d., milk of magnesia 30 mL p.o. b.i.d. p.r.n. constipation, [place] 10/325 mg one p.o. every 4 hours p.r.n. pain, and Tylenol 650 mg p.o. every 4 hours p.r.n. mild pain. Mayito Locke TID: [id number] RECEIPT: [id number] CLIFFORD/MARCIAL cc: Tim Soto MD, ZEENAT DAILEY DO(User)
== END 2024-09-04 16:30 | DRG 216 ==
LOC: UNDOADMIN 17:29 → PCU 3S 17:29 → CICU 2S 08-25 12:11 → PCU 3S 09-01 19:53
PROVIDERS: ADMIT Internal Medicine; ATTEND Internal Medicine
PROC: 4A023N8 Measurement of Cardiac Sampling and Pressure, Bilateral, Percutaneous Approach (ICD-10-PCS; 2024-08-22)
PROC: B2111ZZ Fluoroscopy of Multiple Coronary Arteries using Low Osmolar Contrast (ICD-10-PCS; 2024-08-22)
PROC: B2151ZZ Fluoroscopy of Left Heart using Low Osmolar Contrast (ICD-10-PCS; 2024-08-22)
PROC: 5A1221Z Performance of Cardiac Output, Continuous (ICD-10-PCS; 2024-08-25)
PROC: 02L70CK Occlusion of Left Atrial Appendage with Extraluminal Device, Open Approach (ICD-10-PCS; 2024-08-25)
PROC: B24BZZ4 Ultrasonography of Heart with Aorta, Transesophageal (ICD-10-PCS; 2024-08-25)
PROC: 30233R1 Transfusion of Nonautologous Platelets into Peripheral Vein, Percutaneous Approach (ICD-10-PCS; 2024-08-25)
PROC: 30233N1 Transfusion of Nonautologous Red Blood Cells into Peripheral Vein, Percutaneous Approach (ICD-10-PCS; 2024-08-25)
PROC: 02HV33Z Insertion of Infusion Device into Superior Vena Cava, Percutaneous Approach (ICD-10-PCS; 2024-08-25)
PROC: 02RG08Z Replacement of Mitral Valve with Zooplastic Tissue, Open Approach (ICD-10-PCS; principal; 2024-08-25 13:52)
PROC: 5A2204Z Restoration of Cardiac Rhythm, Single (ICD-10-PCS; 2024-09-01)
DX: I34.0 Nonrheumatic mitral (valve) insufficiency (principal); I50.33 Acute on chronic diastolic (congestive) heart failure; I31.39 Other pericardial effusion (noninflammatory); I48.92 Unspecified atrial flutter; I48.91 Unspecified atrial fibrillation; E11.9 Type 2 diabetes mellitus without complications; E78.5 Hyperlipidemia, unspecified; E83.41 Hypermagnesemia; I45.9 Conduction disorder, unspecified; I65.23 Occlusion and stenosis of bilateral carotid arteries; Z66 Do not resuscitate; F10.20 Alcohol dependence, uncomplicated; D64.9 Anemia, unspecified; J44.9 Chronic obstructive pulmonary disease, unspecified; I11.0 Hypertensive heart disease with heart failure; Z90.49 Acquired absence of other specified parts of digestive tract; Z87.891 Personal history of nicotine dependence; Z88.8 Allergy status to other drugs, medicaments and biological substances; K29.00 Acute gastritis without bleeding
CPT/HCPCS: 36415; 36430; 36600; 70498; 71045; 71046; 76376; 80053; 80061; 81003; 82330; 82435; 82803; 82947; 82948; 83036; 83735; 83880; 84100; 84132; 84295; 85018; 85025; 85347; 85610; 85730; 86885; 86900; 86901; 86920; 87070; 87081; 88300; 93005; 93308; 93312; 93325; 93460; 93880; 94002; 94060; 94640; 94668; 94760; 97110; 97116; 97161; 97530; 99152; 99153; A4333; A4615; A4618; A6213; A6258; A6402; A6449; A7000; A7048; C1725; C1751; C1760; C1781; C1894; G0378; J0171; J0282; J0690; J1100; J1250; J1644; J1815; J1938; J2003; J2150; J2250; J2270; J2405; J2470; J2704; J2720; J2765; J2919; J3010; J3370; J3475; J3480; J3490; J7030; J7040; J7050; J7070; J7120; P9016; P9035; P9045; P9047; Q9967

== ENCOUNTER 2024-09-23 09:38 | Outpatient (CLI) | payer MEDICARE ==
[~2024-09-23 09:38] MED LIST: ALLO100T PO; AMI200T PO; AMLO5TAB16 PO; APIX5TAB5 PO; EVOL140P3 SQ; EVOL140P3 SUBCUT; FLUT16SP; FURO20TA4 PO; LOSA50TA64 PO; METO-411 PO; NITR0.4T48 SL; PANT40SU2 PO; POTA-206 PO
--- NOTE | 2024-09-23 12:25 | RADIOLOGY REPORT ---
DI CHEST,TWO VIEWS CLINICAL HISTORY: POST OP MVR, FLUID COMPARISON: DI CHEST,TWO VIEWS on DOS: 08/23/24 TECHNIQUE: Frontal and lateral view of the chest was obtained FINDINGS: Lines and Tubes: None Lungs: No focal consolidation. Pleura: Small bilateral effusions Cardiomediastinal contours: Cardiomegaly Bones: No acute osseous abnormality. IMPRESSION: Cardiomegaly with small bilateral effusions
== END 2024-09-23 23:59 | disposition home or self-care (01) ==
LOC: RAD 09:38
PROVIDERS: ATTEND Thoracic Surgery (Cardiothoracic Vascular Surgery)
DX: J90 Pleural effusion, not elsewhere classified (principal); I51.7 Cardiomegaly; I34.0 Nonrheumatic mitral (valve) insufficiency
CPT/HCPCS: 71046

== ENCOUNTER 2024-11-10 10:55 | Day surgery (SDC) | payer MEDICARE ==
[~2024-11-10] VITALS: Ht 165.1 cm; Wt 73.1 kg
[2024-11-10] VITALS (7 sets, daily range): BP systolic 118–149; BP diastolic 65–74; PULSE 61–70; RESP 11–18; TEMP 98.2; O2SAT 93–99
--- NOTE | 2024-11-10 11:26 | ELECTROCARDIOGRAPH REPORT ---
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 SCOTT Coffey Measurements Intervals [place] Rate: 79 P: 0 IN: 0 QRS: 42 QRSD: 106 T: 162 QT: 459 QTc: 527 Interpretive Statements Atrial fibrillation Ventricular premature complex Repol abnrm suggests ischemia, anterolateral Prolonged QT interval Electronically Signed On 11-11-2024 13:24:[address] SCOTT Coffey Please click the below link to view image of tracing.
[2024-11-10] MEDS ORDERED: MIDAZolam 1mg/ml 10ml vial IV ONE (11:40)
[2024-11-10] MEDS ORDERED: normal saline 1000ml 1,000 ML IV SCH (11:40)
[2024-11-10] MEDS ORDERED: fentaNYL/PF 50MCG/1 ML 2ML syringe IV ONE (11:40)
[2024-11-10 11:55] LABS: MEAN PLATELET VOLUME 6.7 FL (7.4-10.4); RED CELL DISTRIBUTION WIDTH 20.4 % (11.5-14.5)
[2024-11-10] MEDS ORDERED: FERR-119 PO (12:01)
[2024-11-10] MEDS ORDERED: UBID10CA4 PO (12:01)
[2024-11-10] MEDS ORDERED: CALC500T63 PO (12:01)
[2024-11-10] MEDS ORDERED: METO50TA7 PO (12:01)
[2024-11-10] MEDS ORDERED: FURO-150 PO (12:01)
[2024-11-10] MEDS ORDERED: MAGN400C PO (12:01)
[2024-11-10] MEDS ORDERED: ASPI-611 PO (12:01)
[2024-11-10] MEDS ORDERED: ERGO400C PO (12:01)
[2024-11-10] MEDS ORDERED: LACT1CAP65 PO (12:01)
[2024-11-10 12:05] LABS: CREATININE 1.44 MG/DL (0.40-0.90); TOTAL CARBON DIOXIDE 26.7 MMOL/L (24-32); eCRCL 30 ML/MIN; eGFR 35 ML/MIN
[2024-11-10 12:06] LABS: INR 1.3 INR
[2024-11-10] MEDS ORDERED: atropine 0.1mg/ml 10ml syringe ONE (12:16)
[2024-11-10] MEDS ORDERED: fentaNYL/PF 50MCG/1 ML 2ML syringe ONE (12:16)
[2024-11-10] MEDS ORDERED: amiodarone 50MG/ML inj IV ONE (12:16)
[2024-11-10] MEDS ORDERED: midazolam 1 mg/ML 2ml injection ONE ×3 (12:16→13:13)
[2024-11-10 12:28] LABS: PLATELET ESTIMATE NORMAL
[2024-11-10 12:31] LABS: ELLIPTOCYTES FEW
--- NOTE | 2024-11-10 14:05 | ELECTROCARDIOGRAPH REPORT ---
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 SCOTT Coffey Measurements Intervals [place] Rate: 68 P: 234 NE: 262 QRS: 36 QRSD: 107 T: 181 QT: 449 QTc: 478 Interpretive Statements Sinus or ectopic atrial rhythm Prolonged NE interval LVH with secondary repolarization abnormality Electronically Signed On 11-11-2024 13:24:[address] SCOTT Coffey Please click the below link to view image of tracing.
--- NOTE | 2024-11-10 14:18 | GI LAB REPORT ---
DATE OF PROCEDURE: 11/10/2024 DICTATING PHYSICIAN: ZEENAT DAILEY DO PROCEDURE PERFORMED: DC cardioversion. PREPROCEDURAL DIAGNOSIS: Atrial fibrillation. POSTPROCEDURAL DIAGNOSIS: Atrial fibrillation, cardioverted to sinus rhythm. DESCRIPTION OF PROCEDURE: The patient was sedated with fentanyl and Versed. She was then given one 200-joule synchronized shock resulting in reversion to sinus rhythm. COMPLICATIONS: There were no complications. PLAN: Ongoing medical therapy. FINAL DIAGNOSIS: Atrial fibrillation, cardioverted to sinus rhythm. ZEENAT DAILEY DO TID: [id number] RECEIPT: [id number] COREY/LEONCIO MTDKaci
== END 2024-11-10 15:02 | disposition home or self-care (01) ==
LOC: SSTAY O 10:55
PROVIDERS: ATTEND Internal Medicine Cardiovascular Disease
DX: I48.91 Unspecified atrial fibrillation (principal); I49.3 Ventricular premature depolarization; R94.31 Abnormal electrocardiogram [ECG] [EKG]; I50.9 Heart failure, unspecified; Z79.899 Other long term (current) drug therapy
CPT/HCPCS: 36415; 80048; 83735; 85025; 85610; 92960; 93005; J2250; J3010; J7030; 85008; 99152; 99153; J0282; J0461